=== PATIENT | female | born 1935 | race Caucasian/White ===

== ENCOUNTER 2017-05-01 20:30 | Outpatient (CLI) | payer MEDICARE | END 2017-05-01 20:31 | disposition home or self-care (01) | LOC: SLEEPLAB 20:30 | PROVIDERS: ATTEND Internal Medicine | DX: G47.33 Obstructive sleep apnea (adult) (pediatric) (principal); G47.00 Insomnia, unspecified; G47.10 Hypersomnia, unspecified; I10 Essential (primary) hypertension; E11.69 Type 2 diabetes mellitus with other specified complication; R00.1 Bradycardia, unspecified | CPT/HCPCS: 95811 ==

== ENCOUNTER 2018-04-08 12:47 | Emergency (ER) | payer MEDICARE ==
[2018-04-08] MEDS ORDERED: traMADol HCl 50 MG TAB ONE (14:03)
--- NOTE | 2018-04-08 14:08 | RAD ---
PELVIC RADIOGRAPH: Date: 04-08-18 Provided Clinical History: Bilateral hip pain. Comparison: 02-05-17 FINDINGS: There is no evidence for fracture or other acute osseous abnormality. Remote, healed fractures of lef t superior and inferior pubic rami noted. Alignment appears anatomic. Joint spaces appear preserved. IMPRESSION: No evidence for an acute osseous abnormality. If there is persistent clinical concern, conservative m anagement and follow up imaging are advised. POS: NAIN
== END 2018-04-08 14:29 | disposition home or self-care (01) ==
LOC: ERS 12:47
DX: M25.551 Pain in right hip (principal); M25.552 Pain in left hip; E11.9 Type 2 diabetes mellitus without complications; E78.5 Hyperlipidemia, unspecified; I10 Essential (primary) hypertension; Z86.73 Personal history of transient ischemic attack (TIA), and cerebral infarction without residual deficits; Z79.899 Other long term (current) drug therapy; Z79.84 Long term (current) use of oral hypoglycemic drugs
CPT/HCPCS: 72170; 94760

== ENCOUNTER 2018-04-12 19:21 | Observation (INO) | payer MEDICARE ==
[2018-04-12] MEDS ORDERED: Morphine 4 MG/ML VIAL ONE (20:43)
[2018-04-12] MEDS ORDERED: Fentanyl 100 MCG/2 ML VIAL SLOW IVP PRN (22:41)
[2018-04-12] MEDS ORDERED: Ondansetron ODT 4 MG TAB SL PRN (22:42)
[2018-04-12] MEDS ORDERED: Ondansetron HCl/PF 4 MG/2 ML Vial IVP PRN (22:42)
[2018-04-12 23:36] VITALS: BMI 32.8
[2018-04-13 05:39] LABS: INR-International Normal Ratio 3.4; Prothrombin Time 34.6 SEC (12.0-14.7)
[2018-04-13] MEDS ORDERED: Meclizine HCl 25 MG TAB PO PRN (05:48)
[2018-04-13] MEDS ORDERED: Bisacodyl 5 MG TAB PO PRN (05:49)
[2018-04-13] MEDS ORDERED: Dextrose 50% Abboject 50 ML SYRINGE SLOW IVP PRN (05:58)
[2018-04-13] MEDS ORDERED: HumaLOG 300 UNITS/3 ML VIAL SC PRN (05:58)
[2018-04-13] MEDS ORDERED: Dextrose 5% in Water 1,000 ML IV PRN (05:58)
[2018-04-13] MEDS ORDERED: Loperamide HCl 2 MG CAP PO PRN (06:10)
[2018-04-13 06:35] LABS: #Eosinphils 0.1 thou/uL (0.0-0.7); #Lymphocytes 1.6 thou/uL (1.20-3.40); #Monocytes 0.5 thou/uL (0.11-0.59); %Basophils 0.1 % (0.0-1.0); %Eosinophils 2.9 % (0.0-10.0); %Lymphocytes 30.2 % (21.0-51.0); %Neutrophils 57.8 % (42.0-75.0); Hemoglobin 10.4 g/dL (12.0-16.0); Mean Corpuscular HGB CONC 33.7 g/dL (32.0-36.0); Mean Corpuscular Hemoglobin 36.5 pg (27.0-31.0); Mean Platelet Volume 6.8 fL (7.4-10.4); Platelet Count 190 thou/uL (130-400); RBC Distribution Width 12.9 % (11.5-14.5); Red Blood Cell (RBC) Count 2.86 mill/uL (4.20-5.40); White Blood Cell (WBC) Count 5.2 thou/uL (4.8-10.8)
--- NOTE | 2018-04-13 06:37 | HP ---
CHIEF COMPLAINT: Lower back pain. HISTORY OF PRESENT ILLNESS: This is an 82-year-old female with past medical history of type 2 diabet es, hyperlipidemia, hypertension, CVA in the past, osteoporosis and fractured lower back presenting w ith lower back pain. Per the patient, she stretched on Saturday prior to this admission and she heard a pop in her back and her back has then since been hurting. The patient states that morphine helps her pain, 0-10 on severity scale, patient's pain is 4/10. Pain is constant. Patient states that she had an accident, it is unknown and accident in the past. Patient said that she had an accident in t he past and that had caused some back problems, but this pain that she is experiencing is a new back pain, which is different from the back pain that she normally experiences in the past. Patient denie s any urinary incontinence, bowel incontinence. REVIEW OF SYSTEMS: Positive for back pain, otherwise as documented in HPI. All other systems are re viewed and are negative. PAST MEDICAL HISTORY: Diabetes mellitus type 2, hyperlipidemia, hypertension, osteoporosis, fracture d lower back in the past, and CVA. PAST SURGICAL HISTORY: Cholecystectomy, tonsillectomy, pacemaker. PSYCHIATRIC HISTORY: No psych history. SOCIAL HISTORY: The patient denies any illicit drug use. Denies any alcohol use and denies any smok ing. FAMILY HISTORY: Reviewed and noncontributory to this case. ALLERGIES: No known drug allergies. CURRENT MEDICATIONS: The patient is on; 1. Coumadin 4 mg. 2. Amlodipine 5 mg. 3. Lisinopril 10 mg. 4. Metformin 750 mg. 5. Actoplus Met 15/500 mg. 6. Zocor 20 mg. PHYSICAL EXAMINATION: VITAL SIGNS: Blood pressure is 140/73, pulse of 60, respiratory rate of 20, temperature of 97.5, O2 sat of 94 on room air. GENERAL: Patient is awake, alert, oriented x3, not in acute distress. The patient is lying in bed. The patient says that she is pain free at this time, patient is alert and oriented x3. HEENT: Normocephalic, atraumatic. Pupils are equally round and react to light. Extraocular movemen ts are intact. No scleral icterus. LUNGS: Clear to auscultation bilateral. No wheezing, no rales, no rhonchi is appreciated. CARDIOVASCULAR: Positive S1, S2. Regular rate and rhythm. No murmurs, no gallops, no rubs apprecia peri. ABDOMEN: Soft, nontender, nondistended. Negative for any peritoneal signs. No masses appreciated. BACK: Patient is having some discomfort at the lumbar spine. EXTREMITIES: The patient has 5/5 upper extremity strength. No edema. Good pulses bilaterally at th e upper extremity. Lower extremity, patient has some difficulty elevating her lower extremities due to pain in the lumbar spine when legs are elevated (positive leg raise), otherwise, no edema. NEUROLOGIC: Cranial nerves II-XII grossly intact. No neurological deficit noted. SKIN: Warm, dry, and intact. PSYCHIATRIC: Alert and oriented x3, normal affect. LABORATORY DATA: PT 34.6, INR 3.4. ASSESSMENT AND PLAN: 1. This is an 82-year-old female being admitted for lumbar pain. At this point, the patient does no t have any urinary or bowel incontinence, we are going to admit the patient and keep the patient for MRI of the lumbar spine in the morning. The patient has a pacemaker and [email or web address] has been contacted to find out if pacemaker is compatible with MRI. If MRI cannot be done, then a CT myelogram has to be done to rule out any cord compression. 2. Diabetes mellitus type 2. We will continue the patient on insulin sliding scale and home medicat ions. 3. Hypertension and hyperlipidemia. We will continue patient on home medication. 4. History of atrial fibrillation. The patient is currently on warfarin. We will continue patient on warfarin. 5. Deep venous thrombosis and gastrointestinal prophylaxis.
[2018-04-13 06:43] LABS: Anion Gap 13 mmol/L (10-20); BUN (Urea Nitrogen) 17 mg/dL (9.8-20.1); Calc. Creatinine Clearance 74 mL/min (70-130); Carbon Dioxide 23 mmol/L (23-31); Chloride 107 mmol/L (98-107); Estimated GFR-MDRD 75; Glucose 125 mg/dL (83-110); Potassium 3.7 mmol/L (3.5-5.1); Sodium 139 mmol/L (136-145)
--- NOTE | 2018-04-13 08:43 | PRG ---
DATE OF SERVICE: 04/13/2018 I personally interviewed and examined the patient, reviewed records and imaging, and agree with docum entation of Lucero Patel PA-C. Briefly, Kourtney Gonzalez is an 82-year-old woman, who woke up in the morning this past week and was do ing her normal stretching exercises before getting out of bed when she heard a pop in her back. The back was hurting and gradually worsened since then and she had to come to the emergency department [facility] night for pain control. CT examination showed an L2 fracture, but she has had a fracture in the p ast. Does not remember how many years ago it was, but that was the beginning of her treatment for os teoporosis. That treatment included some injections for a number of months, but she is no longer eh ing those injections. The pain now reminds her of when she had her fracture before and she is concer bebe that there is another one, which may be new. I have seen Ms. Gonzalez in her hospital bed this morning. She has already been fitted with a TLSO brac e that is closed by Velcro straps in the front. It has a chest extension. There is some tenderness in the paraspinal muscles and along the midline of the spine. This is in the thoracolumbar region, a nd it is diffuse. The motor function in the lower extremities is normal. Flexing the hip in the bed reproduces her luis antonio k pain, so she is hesitant to do it, but I do not find any neurological deficit. She has good sensat ion and strength. It is likely, but not definitive, that she has had a new compression fracture. L2 seems to be deform ed, but this could be an old injury. MR imaging of her bone scan could tell us what the level of the new injury might be. Alternatively, we can skip the scans and use a brace and analgesics for pain c ontrol. She does not want any surgical intervention even kyphoplasty to be considered yet. In a few weeks of bracing, we can see her in the office for followup AP and lateral spine imaging. If she is able to get MR imaging here in the hospital, we will follow up when those are done, but otherwise br acing and analgesics will be the mainstay of therapy.
[2018-04-13] MEDS: Amlodipine 5 MG TAB PO SCH (08:56)
[2018-04-13] MEDS: Famotidine 20 MG TAB PO SCH ×2 (08:57→20:24)
[2018-04-13] MEDS: Lisinopril 10 MG TAB PO SCH (08:57)
--- NOTE | 2018-04-13 12:49 | CON ---
DATE OF CONSULTATION: 04/13/2018 HISTORY OF PRESENT ILLNESS: Ms. Gonzalez was brought to the emergency room as a transfer from [place]. She has been in and out of the emergency room there over the last week. She states that Saturday, he woke up and stretched, she heard a pop in her back and it started hurting. She states that kristofer emanuel has helped with the pain and she will feel the pain across her back into both hips. She states sandrine t when she is up on her feet for any length of time, she feels like it gets down into both legs. She states that she saw her primary care provider who prescribed her some muscle relaxers and told her t o keep moving. She has been taking muscle relaxers, Tylenol and tramadol, but not much has been help ing the pain. She states that she is pain free when she lays down. However, if she lifts her legs o ff the bed, she has back pain and. If she sits or stands, she has back pain. The patient states sandrine t she has had a previous compression fracture without injury. I believe that this is L2 fracture sandrine t is seen on the CT. The patient denies any numbness or tingling. She denies any weakness. No jeff l or bladder dysfunction. Patient states that she does not remember how long ago her previous fractu re was, however, her primary carer started her on treatment for osteoporosis. She has been taking in jections and oral medications; however, she is not taking them any longer. Ms. Gonzalez is resting comf ortably in her hospital bed. She is eating breakfast. She has been fitted with a TLSO brace. She h as midline tenderness along the lumbar spine when palpated but pain free when lying down. REVIEW OF SYSTEMS: The patient denies any fever or chills. No changes in vision or hearing. No dif ficulty swallowing or sore throat. She denies any chest pain, palpitations, or shortness of breath. She denies any abdominal pain, nausea or vomiting. Denies any diarrhea, constipation, or urinary dy sfunction. PAST MEDICAL HISTORY: Positive for diabetes type 2, hyperlipidemia, hypertension, history of ischemi c cerebrovascular accident, osteoporosis, previous compression fracture of the low back. PAST SURGICAL HISTORY: Cholecystectomy, tonsillectomy, had a pacemaker placed in October 2017. SOCIAL HISTORY: The patient denies tobacco use, alcohol use, or any other illicit drugs. She lives in her home with her who helps her with her daily activities. FAMILY HISTORY: Noncontributory. ALLERGIES: No known drug allergies. MEDICATIONS: Coumadin, amlodipine, lisinopril, metformin, Actoplus, Zocor. PHYSICAL EXAMINATION: VITAL SIGNS: Temperature 98.0, heart rate 77, respiratory rate 18, O2 sat 93% on room air. Blood pr essure 149/73. GENERAL: The patient is resting in her hospital bed. She is afebrile, normotensive. She appears no ntoxic, pain-free, alert and oriented to person, place, and time. HEENT: Head is normocephalic, atraumatic. Pupils are equal, round, reactive to light. Extraocular movements are intact. Hearing is intact. Moist mucous membranes. RESPIRATORY: Normal work of breathing, room air. CARDIOVASCULAR: Regular rate and rhythm. Normal S1, S2. UPPER AND LOWER EXTREMITIES: The patient is able to move upper and lower extremities well. She has slight decrease in strength on the left upper extremity due to recovery from her previous stroke. Th e patient has normal velvet cutter strength bilaterally, 5/5 deltoid, biceps, and triceps on the right, 4+/5 o n the left. Lower extremities, hip flexion bilaterally recreates the back pain. She has limited str ength due to the pain. She has normal motor and sensation 5/5, dorsiflexion, plantar flexion, knee f lexion and extension. NEUROLOGIC: The patient is alert and oriented to person, place and time. Speech is spontaneous and fluent. Normal fund of knowledge. Cranial nerves II-XII are intact. There are no focal motor or se nsory deficits. ASSESSMENT AND PLAN: Ms. Gonzalez is an 82-year-old female with new onset of back pain with history of osteoporosis. It is likely that her pain is a new compression fracture. Upon imaging, the L2 appear s to be an old injury. MRI imaging will tell us if there is a new injury in the level that it could be. Depending on whether Ms. Gonzalez wants to have the MRI or CT myelogram, she can skip the scans and we can control her pain with bracing and analgesics that is up to her. The patient states that she does not want any surgical intervention, even if kyphoplasty could be a consideration. In a few week s of bracing, we will see her in the office to followup. We would like to obtain AP and lateral imag ing at that time. If she is able to get an MRI of her lumbar spine, we will review this.
--- NOTE | 2018-04-13 16:13 | PDOC.PN ---
- Subjective Encounter Start Date: 04/13/18 Encounter Start Time: 16:10 Ms. Gonzalez was seen today in follow-up of Lumbar Vertebral fracture. She says the pain is about a 4/10 when she moves around, otherwise it is ok. She denies any bowel or bladder dysfunction. - Objective Resuscitation Status: Resuscitation Status FULL:Full Resuscitation MAR Reviewed: Yes Vital Signs & Weight: Vital Signs (12 hours) Temp Pulse Resp BP BP BP Pulse Ox 04/13/18 11:20 98 F 66 18 121/72 94 L 04/13/18 08:57 149/78 H 04/13/18 08:56 77 149/78 H 04/13/18 07:18 98 F 77 18 149/73 H 93 L 04/13/18 05:02 98 F 86 18 148/67 H 97 Weight Admit Weight 173 lb 8.061 oz Weight 173 lb 8.061 oz Result Diagrams: 04/13/18 05:23 04/13/18 05:23 Additional Labs: Accuchecks 04/13/18 11:17 POC Glucose 105 Phys Exam - Physical Examination HEENT: PERRLA Respiratory: no wheezing, no rales, no rhonchi, clear to auscultation bilateral Cardiovascular: RRR, no significant murmur, no rub Gastrointestinal: soft, non-tender, no distention, positive bowel sounds Musculoskeletal: no edema Dx/Plan (1) Compression fracture of L2 lumbar vertebra Code(s): S32.020A - WEDGE COMPRESSION FRACTURE OF SECOND LUMBAR VERTEBRA, INIT Status: Acute (2) Diabetes mellitus type 2 in obese Code(s): E11.69 - TYPE 2 DIABETES MELLITUS WITH OTHER SPECIFIED COMPLICATION; E66.9 - OBESITY, UNSPECIFIED Status: Acute (3) Hypertension Code(s): I10 - ESSENTIAL (PRIMARY) HYPERTENSION Status: Acute (4) Cerebral vascular accident Code(s): I63.9 - CEREBRAL INFARCTION, UNSPECIFIED Status: Acute - Plan * L2 Vertebral fracture- Neurosurgery Evaluation Noted. She will be treated conservatively * MRI is not compulsory * HTN- blood pressure was initially elevated, but is now trending down- will continue Lisinopril and Amlodipine * DM- blood glucose is stable- continue to hold her oral medication and continue with SSI * Chronic Anticoagulation- ? reason. The patient says she had a stroke about 12 years ago, and after that she was put on couadin. She says it is not due to AFIB , and she has not had a DVT or PE that she is aware of. INR is 3.6 today- will hold coumadin * PT/OT
[2018-04-13] MEDS: Acetaminophen 325 MG TAB PO PRN ×2 (16:51→23:01)
[2018-04-13] MEDS ORDERED: Warfarin Sodium 2 MG TAB PO SCH (17:00)
[2018-04-13] MEDS ORDERED: Cyclobenzaprine 10 MG TAB PO PRN (18:58)
[2018-04-13] MEDS: traMADol HCl 50 MG TAB PO PRN (20:24)
[2018-04-13] MEDS ORDERED: Simvastatin 20 MG TAB PO SCH (21:00)
[2018-04-14] MEDS: traMADol HCl 50 MG TAB PO PRN ×2 (05:37→13:00)
[2018-04-14 05:40] LABS: INR-International Normal Ratio 2.2; Prothrombin Time 24.4 SEC (12.0-14.7)
[2018-04-14] MEDS: Lisinopril 10 MG TAB PO SCH (07:42)
[2018-04-14] MEDS: Famotidine 20 MG TAB PO SCH (07:42)
[2018-04-14] MEDS: Amlodipine 5 MG TAB PO SCH (07:43)
[2018-04-14] MEDS: Acetaminophen 325 MG TAB PO PRN (10:06)
[2018-04-14 16:12] VITALS: BP 160/75; TEMP 97.7
--- NOTE | 2018-04-14 16:35 | PDOC.PN ---
- Subjective Encounter Start Date: 04/14/18 Encounter Start Time: 16:33 Ms. Gonzalez was seen today in follow-up of Lumbar fracture. she does not have any complaints this morning. - Objective Resuscitation Status: Resuscitation Status FULL:Full Resuscitation MAR Reviewed: Yes Vital Signs & Weight: Vital Signs (12 hours) Temp Pulse Resp BP BP BP Pulse Ox 04/14/18 15:36 97.7 F 66 18 160/75 H 93 L 04/14/18 11:05 97.5 F L 63 16 164/71 H 97 04/14/18 07:43 74 04/14/18 07:42 164/73 H 04/14/18 07:14 97.4 F L 74 18 164/73 H 97 Weight Admit Weight 173 lb 8.061 oz Weight 173 lb 8.061 oz I&O: 04/13/18 04/14/18 04/15/18 06:59 06:59 06:59 Intake Total 1050 Balance 1050 Result Diagrams: 04/13/18 05:23 04/13/18 05:23 Additional Labs: Accuchecks 04/14/18 04/14/18 04/13/18 10:09 05:43 20:56 POC Glucose 92 88 193 H 04/13/18 18:25 POC Glucose 145 H Phys Exam - Physical Examination HEENT: PERRLA Respiratory: no wheezing, no rales, no rhonchi, clear to auscultation bilateral Cardiovascular: RRR, no significant murmur, no rub Gastrointestinal: soft, non-tender, no distention, positive bowel sounds Musculoskeletal: no edema Dx/Plan (1) Compression fracture of L2 lumbar vertebra Code(s): S32.020A - WEDGE COMPRESSION FRACTURE OF SECOND LUMBAR VERTEBRA, INIT Status: Acute (2) Diabetes mellitus type 2 in obese Code(s): E11.69 - TYPE 2 DIABETES MELLITUS WITH OTHER SPECIFIED COMPLICATION; E66.9 - OBESITY, UNSPECIFIED Status: Acute (3) Hypertension Code(s): I10 - ESSENTIAL (PRIMARY) HYPERTENSION Status: Acute (4) Cerebral vascular accident Code(s): I63.9 - CEREBRAL INFARCTION, UNSPECIFIED Status: Acute - Plan * L2 Compression fracture- She does not have any neurological compromise * She has been ambulating with the Brace without difficulty * She is stable for discharge home.
--- NOTE | 2018-04-15 07:53 | DIS ---
The pain was relatively mild and therefore, it was felt that there was no need for any operative inte rvention, she will be treated conservatively and as such is subsequently able to be discharged home t [facility] in stable condition with follow up with Dr. Antoine as instructed. DISCHARGE DIAGNOSES: 1. . 2. Compression fracture. 3. Diabetes mellitus, type 2. 4. Hyperlipidemia. 5. Hypertension. 6. History of cerebrovascular accident. 7. Chronic anticoagulation, unknown reason. DISCHARGE MEDICATIONS: Include tramadol 50-100 mg q.6 hours as needed for pain, Coumadin 4 mg daily, amlodipine 5 mg daily, lisinopril 10 mg daily, metformin/pioglitazone 15/500 one tablet daily, mecli zine 25 mg twice daily, amlodipine 5 mg daily, lisinopril 10 mg a day. CODE STATUS: FULL CODE. ALLERGIES: No known drug allergies. HOSPITAL COURSE: Ms. Gonzalez is a pleasant 82-year-old female who presented to the emergency room afte r she had the sudden episode of severe back pain. She says that she had stretched and heard a pop an d then had the sensation of the pain. She was evaluated in the ER and had a CT scan of the lumbar sp ine. It was noted that there was a compression fracture at L2, which was a new as compared to previo us CT scan. She was placed in observation and Neurosurgery was consulted. She had no evidence of an y motor weakness, no bowel or bladder dysfunction and her pain was relatively .
== END 2018-04-14 16:55 | disposition home or self-care (01) ==
LOC: ERS 19:21 → SURG A 22:38
PROVIDERS: ADMIT Internal Medicine; ATTEND Internal Medicine
DX: M80.08XA Age-related osteoporosis with current pathological fracture, vertebra(e), initial encounter for fracture (principal); E11.9 Type 2 diabetes mellitus without complications; E78.5 Hyperlipidemia, unspecified; I10 Essential (primary) hypertension; Z86.73 Personal history of transient ischemic attack (TIA), and cerebral infarction without residual deficits; Z79.01 Long term (current) use of anticoagulants; Z79.84 Long term (current) use of oral hypoglycemic drugs; Z79.899 Other long term (current) drug therapy
CPT/HCPCS: 80048; 82962 ×2; 85025; 85610 ×2; 96374; 96375; 97116; 97139 ×4; 97535; 99285; G0378 ×2; G8978; G8979; G8980; G8987; G8988; G8989; 36415; 36416; J2270; J3010

== ENCOUNTER 2018-07-04 10:16 | Outpatient (CLI) | payer MEDICARE ==
--- NOTE | 2018-07-04 15:21 | NM ---
WHOLE BODY BONE SCAN: Date: 07-04-18 Provided Clinical History: Fracture of unspecific thoracic vertebra. FINDINGS: 31.5 mCi Technetium 99M MDP IV with three hour whole body posterior and anterior planar imaging perfo rmed. Correlation with lumbar spine CT 06-13-18. Intense radiotracer uptake associated with the L1 and L2 vertebral bodies in regions of vertebroplast y change. No radiotracer uptake is seen in the region of the T11 fracture. Remote right sided rib fra cture. Degenerative change both shoulders and left knee. IMPRESSION: Activity associated with the L1 and L2 compression deformities status post vertebroplasty. POS: MEHDI
== END 2018-07-04 10:17 | disposition home or self-care (01) ==
LOC: NM 10:16
PROVIDERS: ATTEND Neurological Surgery
DX: S22.008A Other fracture of unspecified thoracic vertebra, initial encounter for closed fracture (principal); Z98.890 Other specified postprocedural states
CPT/HCPCS: 78306; A9503

== ENCOUNTER 2018-08-02 09:23 | Observation (INO) | payer MEDICARE ==
--- NOTE | 2018-08-02 11:59 | CT ---
CT THORACIC SPINE NONCONTRAST: HISTORY: Low back pain. FINDINGS: Near-complete compression of the T11 vertebral body is unchanged in appearance from the radiographs 2017. Other thoracic vertebral body heights are maintained. Scattered osteophytosis. Vertebro plasty seen and at the L1 level is partially visualized. Calcification in the arterial structures. Dependent bibasilar lung atelectasis. IMPRESSION: 1. Chronic compression deformity at T11. Degenerative changes of the thoracic spine. No acute comp ression fracture is evident. 2. Atherosclerosis. POS: NAIN
--- NOTE | 2018-08-02 12:07 | CT ---
CT LUMBAR SPINE NONCONTRAST: HISTORY: Worsening low back pain. COMPARISON: 06/13/2018. FINDINGS: Vertebroplasty cement is again demonstrated at the L1 and L2 levels. L2 compression injury is unchan ged in appearance with mild retropulsion of superior end plate. Compression of the L1 vertebral body centrally has progressed since the prior study, now estimated at 40% compression. Minimal retropulsion of the superior end plate. Degenerative changes throughout the lumbar spine are otherwise stable. Osseous structures are demine ralized. Calcification of the arterial structures. T11 vertebral compression is stable and describe d in better detail on dedicated CT thoracic spine exam. IMPRESSION: Interval increase in compression injury of the L1 vertebral body. Other findings are stable. POS: NAIN
[2018-08-02 14:09] LABS: #Eosinphils 0.2 thou/uL (0.0-0.7); #Lymphocytes 1.8 thou/uL (1.20-3.40); #Monocytes 0.4 thou/uL (0.11-0.59); #Neutrophils 3.3 thou/uL (1.40-6.50); %Basophils 0.8 % (0.0-1.0); %Eosinophils 2.9 % (0.0-10.0); %Monocytes 7.3 % (0.0-10.0); Hemoglobin 11.7 g/dL (12.0-16.0); Mean Corpuscular HGB CONC 32.2 g/dL (32.0-36.0); Mean Corpuscular Hemoglobin 35.8 pg (27.0-31.0); Mean Platelet Volume 7.1 fL (7.4-10.4); Platelet Count 181 thou/uL (130-400); RBC Distribution Width 12.5 % (11.5-14.5); Red Blood Cell (RBC) Count 3.27 mill/uL (4.20-5.40); White Blood Cell (WBC) Count 5.7 thou/uL (4.8-10.8)
[2018-08-02 14:25] LABS: MDiff Complete? YES; Macrocytosis SLIGHT = 6-15 cells (100X) (0-5/hpf); Platelet Morphology Comment Appears Adequate; Polychromasia SLIGHT = 2-3 cells (100X) (0-2/hpf)
[2018-08-02 14:27] LABS: ALT (SGPT) 20 U/L (8-55); AST (SGOT) 43 U/L (5-34); Albumin 3.9 g/dL (3.4-4.8); Alkaline Phosphatase 58 U/L (40-150); Anion Gap 15 mmol/L (10-20); BUN (Urea Nitrogen) 18 mg/dL (9.8-20.1); Bilirubin, Total 0.5 mg/dL (0.2-1.2); Calc. Creatinine Clearance 0 mL/min (70-130); Calcium 9.5 mg/dL (7.8-10.44); Carbon Dioxide 25 mmol/L (23-31); Chloride 102 mmol/L (98-107); Estimated GFR-MDRD 62; Globulin 3.3 g/dL (2.4-3.5); Glucose 123 mg/dL (83-110); Potassium 3.9 mmol/L (3.5-5.1); Protein, Total 7.2 g/dL (6.0-8.3); Sodium 138 mmol/L (136-145)
[2018-08-02] MEDS ORDERED: HYDROcodone/Acetaminophen 10/325 mg Tablet ONE (15:11)
[2018-08-02] MEDS ORDERED: Senokot S 8.6-50 MG TAB PO PRN (16:14)
[2018-08-02] MEDS ORDERED: Ondansetron ODT 4 MG TAB SL PRN ×2 (16:14→16:20)
[2018-08-02] MEDS ORDERED: Ondansetron PF 4 MG/2 ML Vial IVP PRN (16:20)
[2018-08-02] MEDS ORDERED: Acetaminophen 325 MG TAB PO PRN (16:20)
[2018-08-02] MEDS ORDERED: Morphine 4 MG/ML VIAL SLOW IVP PRN (16:20)
[2018-08-02] MEDS ORDERED: Morphine 4 MG/ML VIAL IV PRN (16:22)
[2018-08-02 16:43] VITALS: BMI 28.3
--- NOTE | 2018-08-02 17:43 | HP ---
CHIEF COMPLAINT: Back pain. HISTORY OF PRESENT ILLNESS: This patient is an 83-year-old female with a history of lumbar compression fracture, which initially started in late March, the patient had L2 and L1 compression fracture. The patient had evaluation by neurosurgery and the recommendation was for conservative management. The patient subsequently was admitted again in May in [facility], where the patient was noted to have some progression of the L1 compression fracture. The patient has been continually followed by Dr. Braden since that time with Pain Management. She has also seen Dr. Villalta eventually and apparently had a vertebroplasty performed after a couple of weeks. The patient did ultimately have some improvement with that and was doing very well for about a week, however, she subsequently had regression with increasing pain over the last 4-5 days. She has been trying to avoid coming to the hospital, but has reached a point where her pain was intolerable. The patient has been on a fentanyl patch at 12 mcg and she has been taking Tylenol and tramadol. They believe that the tramadol has been causing her some nausea and vomiting. Those symptoms have certainly been happening primarily in the middle of the night and they have essentially narrowed down thinking it is the tramadol that was causing that. Today, the patient ultimately called for ambulance transport and en route, the patient received IV morphine at 4 mg and had significant improvement of her symptoms and even now that she is much better than she has been over the last several days. She reports that the pain radiates down into both thighs which has been the typical. However, she has not had any loss of bowel or bladder function and has had no other loss of neurologic function including no numbness or specific weakness. Of note, the patient has been on osteoporosis medications and has done so for a number of years trying to avoid these types of issues. In the emergency room today, the patient had a repeat CT scan, which showed interval increase in compression of the L1 vertebrae. It is now about a 40% compression. There is minimal retropulsion of the superior endplate. There is also noted notation of the old T11 vertebral compression fracture, which was stable and had occurred prior to the lumbar compression. REVIEW OF SYSTEMS: The patient has had the above-mentioned intermittent nausea and some vomiting, which is primarily occurred at nights and believed to be related to the tramadol. She has type 2 diabetes, hypertension, hyperlipidemia, osteoporosis, prior CVA, and a history of atrial fibrillation, for which she takes the anticoagulation. PAST SURGICAL HISTORY: Cholecystectomy, tonsillectomy, pacemaker, and vertebroplasty. FAMILY HISTORY: Reviewed and notable for significant osteoporosis in her mother. SOCIAL HISTORY: No drugs, no alcohol, no tobacco. She is . She lives with her . She is a full code and her and her son would be her surrogate decision maker. ALLERGIES: NONE. CURRENT MEDICATIONS: Include; 1. Amlodipine 5 mg daily. 2. Lisinopril 10 mg daily. 3. Simvastatin 10 mg daily. 4. Warfarin 1 mg daily. 5. Hydrochlorothiazide 25 daily. 6. Ropinirole 1 mg at bedtime. 7. Pioglitazone/metformin 15/500 one p.o. daily. 8. Tamsulosin 0.4 mg daily. 9. Carvedilol 12.5 mg daily. 10. Ranitidine 150 mg daily. 11. Aspirin 81 mg daily. 12. Fentanyl patch 12 mcg. PHYSICAL EXAMINATION: VITAL SIGNS: BP 128/57, pulse 60, respirations 17, temperature 98.1, O2 saturation 97% on room air. GENERAL APPEARANCE: Age-appropriate female. She is definitely uncomfortable with even trying to get her in the bed and get her appropriately positioned. She is requiring several pillows up on her head and neck area in order to keep herself comfortable and has to keep her legs bent at times. HEENT: PERRL. No OP lesions. Denture is in place. NECK: Supple and symmetric. HEART: Regular rate and rhythm without murmurs. LUNGS: Clear to auscultation bilaterally with good chest wall expansion and air exchange. ABDOMEN: Soft, nontender, and nondistended. Positive bowel sounds. No masses. No organomegaly. EXTREMITIES: Warm and dry without edema. MUSCULOSKELETAL: Reveals normal spontaneous movement of the lower extremities. There is tenderness to palpation of the lumbar spine. LABORATORY DATA: White count 5.7, hemoglobin 11.7, platelets 181. Sodium 138, potassium 3.9, CO2 is 102, BUN 18, creatinine 0.87, calcium 9.5, glucose 123, AST 43, ALT 20, albumin 3.9. L-spine CT as above. T-spine CT shows the chronic compression deformity at T11 and degenerative changes of the thoracic spine with some atherosclerosis. IMPRESSION AND PLAN: 1. Intractable pain secondary to lumbar compression fracture at L1, which has apparently progressed based on imaging. The patient will continue to receive morphine today. Her Duragesic patch will stay on. We will try to get her pain under control today and see if we can try to transition her to a non IV regimen as soon as possible. We will go ahead and consult Physical Therapy. If the patient is still here on Saturday, we will need to talk to Dr. Villalta and see if there is a possibility of doing anything again in order to try to stabilize her spine situation. The patient has a TLSO brace on already. We will ask Physical Therapy to consult. 2. Diabetes mellitus. Continue with her usual home regimen, Accu-Cheks and sliding scale insulin. 3. Hypertension. Continue home medications. 4. Hyperlipidemia. We will continue her usual medications. 5. Macrocytic anemia. We will check some anemia indices. Job ID: [id number]
[2018-08-02] MEDS: Acetaminophen 325 MG TAB PO PRN (21:31)
[2018-08-03] MEDS: Acetaminophen 325 MG TAB PO PRN ×3 (04:00→14:18)
[2018-08-03] MEDS ORDERED: Tamsulosin HCl 0.4 MG CAP PO PRN (08:47)
[2018-08-03] MEDS ORDERED: Non-Formulary Item 1 EACH (Acetaminophen [Tylenol] 650 MG) PO SCH (09:00)
[2018-08-03] MEDS ORDERED: Non-Formulary Item 1 EACH (Carvedilol [Carvedilol] 12.5 MG) PO SCH (09:00)
[2018-08-03] MEDS ORDERED: Warfarin Sodium 2 MG TAB PO SCH ×2 (09:00→17:00)
--- NOTE | 2018-08-03 09:03 | PDOC.PN ---
- Subjective Encounter Start Date: 08/03/18 Encounter Start Time: 09:02 Pain is improved. She still needs some help getting up to bedside commode. Nurse reports patient was able to get up last night. - Objective Resuscitation Status - Order Detail: 08/02/18 16:14 Resuscitation Status Routine Resuscitation Status: DNAR: NO Resuscitation Discussed with: Patient Vital Signs & Weight: Vital Signs (12 hours) Temp Pulse Resp BP BP Pulse Ox 08/03/18 07:00 97.5 F L 66 20 128/66 95 08/03/18 04:00 98.2 F 60 20 121/57 L 96 08/03/18 00:00 97.8 F 60 20 103/63 94 L Weight Weight 150 lb Result Diagrams: 08/02/18 13:53 08/02/18 13:53 Phys Exam - Physical Examination Constitutional: NAD Lying supine in bed. Respiratory: no wheezing, no rales, no rhonchi Cardiovascular: no significant murmur, irregular Gastrointestinal: soft, non-tender, no distention, positive bowel sounds Musculoskeletal: no edema Psychiatric: normal affect, A&O x 3 Dx/Plan (1) Compression fracture of C1 vertebra with delayed healing Code(s): S12.090G - OTH DISP FX OF FIRST CERVCAL VERT, SUBS FOR FX W DELAY HEAL Status: Acute (2) Compression fracture of C2 vertebra with delayed healing Code(s): S12.190G - OTH DISP FX OF SECOND CERVCAL VERT, SUBS FOR FX W DELAY HEAL Status: Acute (3) Intractable pain Code(s): R52 - PAIN, UNSPECIFIED Status: Acute (4) Diabetes mellitus type 2 in obese Code(s): E11.69 - TYPE 2 DIABETES MELLITUS WITH OTHER SPECIFIED COMPLICATION; E66.9 - OBESITY, UNSPECIFIED Status: Chronic (5) Hypertension Code(s): I10 - ESSENTIAL (PRIMARY) HYPERTENSION Status: Chronic - Plan * Continue IV meds prn. * PT eval. * Anticipate then need to discuss with Dr. Villalta tomorrow to get clarity on the situation. It is not clear that if the additional compression is new since the vertebroplasty or if it was present then and simply looks new compared the images in our EHR from before. Will also need to know if there is anything more that can be done from his perspective. * Accuchecks, Carb consistent diet, SSI, home meds. * Check INR.
[2018-08-03] MEDS ORDERED: Dextrose 50% Abboject 50 ML SYRINGE SLOW IVP PRN (09:04)
[2018-08-03] MEDS ORDERED: Dextrose 5% in Water 1,000 ML IV PRN (09:04)
[2018-08-03] MEDS ORDERED: HumaLOG 300 UNITS/3 ML VIAL SC PRN (09:04)
[2018-08-03] MEDS: Aspirin Chewable 81 MG TAB PO SCH (09:41)
[2018-08-03] MEDS: Pioglitazone HCl 15 MG TAB PO SCH (09:41)
[2018-08-03] MEDS: Hydrochlorothiazide 25 MG TAB PO SCH (09:41)
[2018-08-03] MEDS: Carvedilol 6.25 MG TAB PO SCH ×2 (09:42→21:35)
[2018-08-03] MEDS: Lisinopril 20 MG TAB PO SCH (09:42)
[2018-08-03 10:21] LABS: Prothrombin Time 43.8 SEC (12.0-14.7)
[2018-08-03 10:27] LABS: INR-International Normal Ratio 4.7
[2018-08-03] MEDS: metFORMIN 500 MG TAB PO SCH (16:59)
[2018-08-03] MEDS ORDERED: Warfarin Sodium 5 MG TAB PO SCH (17:00)
[2018-08-03] MEDS ORDERED: Non-Formulary Item 1 EACH (Ranitidine Hcl [Ranitidine Hcl] 150 MG) PO SCH (21:00)
[2018-08-03] MEDS ORDERED: Simvastatin 20 MG TAB PO SCH (21:00)
[2018-08-03] MEDS: rOPINIRole HCl 1 MG TAB PO SCH (21:34)
[2018-08-03] MEDS: Acetaminophen 325 MG TAB PO SCH (21:35)
[2018-08-03] MEDS: Famotidine 20 MG TAB PO SCH (21:36)
[2018-08-03] MEDS: Amlodipine 5 MG TAB PO SCH (21:36)
[2018-08-03] MEDS: Atorvastatin Calcium 10 MG TAB PO SCH (21:36)
[2018-08-04 06:34] LABS: INR-International Normal Ratio 3.6; PTT 69.3 SEC (22.9-36.1); Prothrombin Time 36.1 SEC (12.0-14.7)
[2018-08-04] MEDS: metFORMIN 500 MG TAB PO SCH (08:18)
[2018-08-04] MEDS: Carvedilol 6.25 MG TAB PO SCH ×2 (08:18→20:05)
[2018-08-04] MEDS: Lisinopril 20 MG TAB PO SCH (08:18)
[2018-08-04] MEDS: Aspirin Chewable 81 MG TAB PO SCH (08:18)
[2018-08-04] MEDS: Pioglitazone HCl 15 MG TAB PO SCH (08:18)
[2018-08-04] MEDS: Hydrochlorothiazide 25 MG TAB PO SCH (08:19)
[2018-08-04] MEDS: Acetaminophen 325 MG TAB PO SCH ×2 (08:22→20:05)
[2018-08-04 09:39] LABS: #Eosinphils 0.1 thou/uL (0.0-0.7); #Lymphocytes 1.3 thou/uL (1.20-3.40); #Monocytes 0.4 thou/uL (0.11-0.59); #Neutrophils 2.7 thou/uL (1.40-6.50); %Eosinophils 3.2 % (0.0-10.0); %Lymphocytes 28.2 % (21.0-51.0); %Monocytes 8.4 % (0.0-10.0); %Neutrophils 59.2 % (42.0-75.0); Hemoglobin 10.9 g/dL (12.0-16.0); Mean Corpuscular HGB CONC 32.3 g/dL (32.0-36.0); Mean Corpuscular Hemoglobin 35.8 pg (27.0-31.0); Mean Platelet Volume 7.1 fL (7.4-10.4); Platelet Count 200 thou/uL (130-400); RBC Distribution Width 12.6 % (11.5-14.5); Red Blood Cell (RBC) Count 3.05 mill/uL (4.20-5.40); White Blood Cell (WBC) Count 4.6 thou/uL (4.8-10.8)
[2018-08-04 10:02] LABS: Anion Gap 15 mmol/L (10-20); BUN (Urea Nitrogen) 32 mg/dL (9.8-20.1); Calc. Creatinine Clearance 39 mL/min (70-130); Calcium 9.2 mg/dL (7.8-10.44); Carbon Dioxide 24 mmol/L (23-31); Chloride 102 mmol/L (98-107); Estimated GFR-MDRD 44; Glucose 134 mg/dL (83-110); Potassium 4.5 mmol/L (3.5-5.1); Sodium 136 mmol/L (136-145)
--- NOTE | 2018-08-04 13:40 | PDOC.PN ---
- Subjective Encounter Start Date: 08/04/18 Encounter Start Time: 11:30 Subjective: Patient examined today, wearing TLSO brace -: Denies pain, reports it is a 0, reports painful night but gone now -: Asking to have Dr. Villalta consulted - Objective Resuscitation Status - Order Detail: 08/02/18 16:14 Resuscitation Status Routine Resuscitation Status: DNAR: NO Resuscitation Discussed with: Patient Vital Signs & Weight: Vital Signs (12 hours) Temp Pulse Resp BP BP Pulse Ox 08/04/18 10:48 97.6 F 60 18 123/52 L 94 L 08/04/18 07:26 98.2 F 61 18 113/65 96 Weight Weight 68.039 kg I&O: 08/03/18 08/04/18 08/05/18 06:59 06:59 06:59 Intake Total 21 Balance 21 Result Diagrams: 08/04/18 09:31 08/04/18 09:31 Additional Labs: Accuchecks 08/04/18 08/04/18 08/03/18 10:47 05:43 15:20 POC Glucose 149 H 100 134 H Phys Exam - Physical Examination HEENT: PERRLA, moist MMs Neck: no nodes, no JVD Respiratory: no wheezing, clear to auscultation bilateral Cardiovascular: RRR, no significant murmur Gastrointestinal: soft, non-tender Musculoskeletal: no edema, pulses present Neurological: non-focal, normal sensation Lymphatic: no nodes Psychiatric: normal affect, A&O x 3 Skin: no rash, normal turgor Dx/Plan (1) Intractable pain Code(s): R52 - PAIN, UNSPECIFIED Status: Acute (2) Compression fracture of L2 lumbar vertebra Code(s): S32.020A - WEDGE COMPRESSION FRACTURE OF SECOND LUMBAR VERTEBRA, INIT Status: Acute (3) Diabetes mellitus type 2 in obese Code(s): E11.69 - TYPE 2 DIABETES MELLITUS WITH OTHER SPECIFIED COMPLICATION; E66.9 - OBESITY, UNSPECIFIED Status: Chronic (4) Hypertension Code(s): I10 - ESSENTIAL (PRIMARY) HYPERTENSION Status: Chronic - Plan cont current plan of care Dr. Villalta's office contacted, spoke with Deborah -: He reviewed new spine CTs states L2 compression fracture has worsened -: Reports fracture is now outside of cement, recommends pain meds, TSLO brace -: He recommends no further interventions, brace, meds and time. -: She can f/u in office once dc'd. CM is working on placement, possible [facility] swing bed, patient is amenable to this. * .
[2018-08-04] MEDS: Acetaminophen 325 MG TAB PO PRN (14:48)
[2018-08-04] MEDS: Sodium Chloride 0.9% 1,000 ML IV SCH (14:48)
[2018-08-04] MEDS: Atorvastatin Calcium 10 MG TAB PO SCH (20:05)
[2018-08-04] MEDS: Amlodipine 5 MG TAB PO SCH (20:06)
[2018-08-04] MEDS: rOPINIRole HCl 1 MG TAB PO SCH (20:06)
[2018-08-04] MEDS: Famotidine 20 MG TAB PO SCH (20:06)
[2018-08-05] MEDS: Sodium Chloride 0.9% 1,000 ML IV SCH (00:59)
[2018-08-05] MEDS: Acetaminophen 325 MG TAB PO PRN (00:59)
[2018-08-05 06:54] LABS: INR-International Normal Ratio 2.4; PTT 45.4 SEC (22.9-36.1); Prothrombin Time 26.2 SEC (12.0-14.7)
[2018-08-05 07:56] VITALS: TEMP 98
[2018-08-05 08:17] LABS: Anion Gap 11 mmol/L (10-20); BUN (Urea Nitrogen) 24 mg/dL (9.8-20.1); Calc. Creatinine Clearance 56 mL/min (70-130); Carbon Dioxide 24 mmol/L (23-31); Chloride 105 mmol/L (98-107); Estimated GFR-MDRD 66; Glucose 117 mg/dL (83-110); Potassium 4.5 mmol/L (3.5-5.1); Sodium 135 mmol/L (136-145)
[2018-08-05] MEDS: Carvedilol 6.25 MG TAB PO SCH (08:40)
[2018-08-05] MEDS: Aspirin Chewable 81 MG TAB PO SCH (08:40)
[2018-08-05] MEDS: Hydrochlorothiazide 25 MG TAB PO SCH (08:40)
[2018-08-05] MEDS: Acetaminophen 325 MG TAB PO SCH (08:40)
[2018-08-05] MEDS: Pioglitazone HCl 15 MG TAB PO SCH (08:40)
[2018-08-05] MEDS ORDERED: Polyethylene Glycol 3350 17 GM Packet PO SCH (09:00)
[2018-08-05 12:00] VITALS: BP 135/75
--- NOTE | 2018-08-06 02:48 | DIS ---
DATE OF ADMISSION: 08/02/2018 DATE OF DISCHARGE: 08/05/2018 PRIMARY CARE PHYSICIAN: Dr. Smith. CONSULTANTS: None. PROCEDURES: 1. The patient had a thoracic spine CT which showed a chronic compression deformity at T11, degenerative changes of thoracic spine, no acute compression fractures evident, atherosclerosis. 2. The patient had a lumbar spine CT which showed an interval increase in compression injury of the L1 vertebral body. Other findings are stable. HOSPITAL COURSE: Ms. Gonzalez is an 83-year-old female with a history of lumbar compression fracture, initially seen in late March. The patient had an L2 and L1 compression fracture. The patient was evaluated at that time by Neurosurgery. Recommendation was for conservative management. The patient was subsequently admitted again in May at [facility]. The patient was noted to have some progression of the L1 compression fracture. The patient follows with Dr. Braden and also sees Dr. Villalta for pain management. He performed a vertebroplasty in May. Reports that she felt much better, but began to have increasing pain and worse over the last 4-5 days prior to admission. She reports that her pain became intolerable and sought further management. The patient is on a fentanyl patch at 12 mcg every three days and also is taking some Tylenol and tramadol. Family believes that the tramadol has been causing her some nausea and vomiting. The patient did have some relief of pain after she was given morphine by EMS and then by the emergency room. She reported at that time that she did have some pain that radiated down both thighs. She denied having any loss of bowel or bladder function and no other loss of neurologic function including denial of any numbness or specific weakness. The patient does have a history of osteoporosis and has been on medication. CT scans were performed as above, which showed an interval increase in the compression of the L1 vertebra. It is no at 40%. The patient has TLSO brace in place. Physical Therapy was consulted. Reports that she has been able to get up with assistance to the bathroom using a walker. Reports that her pain has decreased over the last several days while ambulating. Reports that it is difficult to get comfortable with the brace on, but otherwise today she reports that the pain is being controlled with Tylenol in addition to her fentanyl patches. Last dose of morphine was given on the 10th at midnight. We did contact Dr. Villalta's office on Saturday. He reviewed her CT scans, remarked that indeed a compression fracture was worse since he saw her, recommended the brace and pain management, and reported that there was no other intervention that he could perform, that she was welcome to follow up with him as an outpatient. The patient requesting to go to a swing bed at [place] [facility] if possible. Reports that her has had recent hip surgery and it is hard for him to take care of her, so placement was requested and approved today. The patient's pain was under better control. The patient's vital signs remained stable. The patient discharged to the swing bed at [facility]. DISCHARGE DIAGNOSES: 1. Intractable pain secondary to lumbar compression fracture at L1, improved. The patient should remain in the TLSO brace. 2. Diabetes mellitus. 3. Hypertension. 4. Hyperlipidemia. 5. Microcytic anemia. REVIEW OF SYSTEMS: The patient was examined prior to discharge. Reports that pain is still present, but manageable. Reports that Tylenol does take the edge off when needed. Reports that she is able to ambulate with assistance with her walker. All other systems reviewed and are negative unless mentioned in the hospital course. PHYSICAL EXAMINATION: VITAL SIGNS: Temperature 98.3, pulse 67, respirations 17, pulse ox is 94% on room air, blood pressure 136/69. GENERAL: The patient appears nontoxic, is in mild pain distress. Reports it is tolerable. She does require several pillows around her head and neck in order to keep herself comfortable. HEENT: Pupils are equally round and reactive to light. Mouth exam is normal. Mucous membranes are moist. NECK: Trachea is midline. No tenderness on palpation. ABDOMEN: Regular rate and rhythm without murmurs. LUNGS: Clear to auscultation bilaterally. Chest wall expansion is equal. Good air exchange. ABDOMEN: Soft, nontender. Bowel sounds are heard. EXTREMITIES: Warm and dry without edema. Pulses are equal bilaterally. MUSCULOSKELETAL: The patient does have spontaneous movement of lower extremities. There is tenderness to palpation to the lumbar spine. ALLERGIES: NONE. MEDICATIONS: Home medications are restarted, 1. Tylenol 625 mg p.o. b.i.d. 2. Norvasc 5 mg p.o. at bedtime. 3. Coreg 12.5 mg p.o. b.i.d. 4. Vitamin D3 2000 units p.o. at bedtime. 5. Fentanyl patch 12 mcg every three days. 6. Loperamide 2 mg p.o. p.r.n. as needed. 7. Actos and metformin 15/500 mg p.o. one daily. 8. Zantac 150 mg p.o. at bedtime. 9. Ropinirole 1 mg p.o. at bedtime. 10. Zocor 20 mg p.o. at bedtime. 11. Flomax 0.4 mg p.o. daily. 12. Aspirin 81 mg p.o. daily. 13. Hydrochlorothiazide 25 mg p.o. daily. 14. Zestril 20 mg p.o. daily. 15. MiraLAX 17 g p.o. daily. 16. Coumadin 1 mg p.o. daily. DISCHARGE CONDITION: Stable. DISPOSITION: The patient will be discharged to the swing bed at [facility]. REFERRALS: The patient should follow up with Dr. Braden within the next week after discharge. The patient should have INR rechecked. Follow up with Dr. Villalta in the next 2 to 3 weeks. Job ID: [id number]
== END 2018-08-05 13:44 ==
LOC: ERS 09:23 → SURG A 15:48
PROVIDERS: ADMIT Internal Medicine; ATTEND Internal Medicine
DX: M48.54XA Collapsed vertebra, not elsewhere classified, thoracic region, initial encounter for fracture (principal); M48.56XA Collapsed vertebra, not elsewhere classified, lumbar region, initial encounter for fracture; E11.9 Type 2 diabetes mellitus without complications; I10 Essential (primary) hypertension; E78.5 Hyperlipidemia, unspecified; D50.9 Iron deficiency anemia, unspecified; M81.0 Age-related osteoporosis without current pathological fracture; I48.91 Unspecified atrial fibrillation; I25.10 Atherosclerotic heart disease of native coronary artery without angina pectoris; E66.9 Obesity, unspecified; Z68.28 Body mass index [BMI] 28.0-28.9, adult; Z90.49 Acquired absence of other specified parts of digestive tract; Z90.89 Acquired absence of other organs; Z95.0 Presence of cardiac pacemaker; Z79.01 Long term (current) use of anticoagulants; Z86.73 Personal history of transient ischemic attack (TIA), and cerebral infarction without residual deficits; Z79.82 Long term (current) use of aspirin; Z79.891 Long term (current) use of opiate analgesic; Z79.899 Other long term (current) drug therapy
CPT/HCPCS: 72128; 72131; 80048 ×2; 80053; 82962 ×3; 85025 ×2; 85610 ×3; 85730 ×2; 96361 ×2; 96374; 97110; 97116 ×2; 97139; 97530; 97535; 99285; G0378 ×3; 36415; 36416; J2270; Q0162

== ENCOUNTER 2018-09-02 10:32 | Outpatient (CLI) | payer MEDICARE ==
--- NOTE | 2018-09-02 16:42 | NM ---
NUCLEAR MEDICINE BONE SCAN WHOLE BODY: (SKELETAL SCINTIGRAPHY) 09/02/2018 HISTORY: An 83-year-old female with S22.000A, thoracic compression fracture. Worse or new pain. COMPARISON: 07/04/2018 TECHNIQUE: IV injection of [id number]: 31.6 mCi 3 hour delayed whole body skeletal scintigraphy in anterior and posterior views. FINDINGS: Again noted is diffusely strongly increased uptake throughout the L1 vertebral body. The increased u ptake diffusely throughout the L2 vertebral body has become slightly weaker since two months ago. There is a new finding of intensely increased uptake throughout one of the lower thoracic vertebral b odies, either T10 or T11. Despite the fact that the CTs of 08/02/2018 demonstrate that the T11 verte bral body has the severe burst fracture compression deformity, today's nuclear medicine bone scan sug gests that it is probably T10 rather than T11. The previously demonstrated single small focus of inc reased uptake at the anterior aspect of one of the right ribs is no longer visualized. Instead, ther e is a new similar such focus involving one of the contralateral left anterior ribs. This is may be a tiny fracture at the costochondral junction. There is no asymmetrical focus of increased uptake in the pelvis, long bones, or skull. IMPRESSION: 1. New intense uptake at lower thoracic spine is evidence for new acute or subacute compression or b urst fracture involving one of the lower thoracic vertebral bodies, either T10 or T11, favor T10. A f ollow-up thoracic spine CT may be useful 2. Nonacute burst fractures of L1 and L2, treated with vertebroplasty. The intensity of uptake of t he L2 vertebral body has decreased since the previous study. AMADA Subramanian POS: NAIN
== END 2018-09-02 10:33 | disposition home or self-care (01) ==
LOC: NM 10:32
PROVIDERS: ATTEND Anesthesiology Pain Medicine
DX: S22.009D Unspecified fracture of unspecified thoracic vertebra, subsequent encounter for fracture with routine healing (principal); Z98.890 Other specified postprocedural states
CPT/HCPCS: 78306; A9503

== ENCOUNTER 2018-09-23 07:13 | Day surgery (SDC) | payer MEDICARE ==
[2018-09-22 11:18] VITALS: BMI 27.4
[2018-09-23 09:05] LABS: INR-International Normal Ratio 1.3
[2018-09-23 09:16] LABS: Anion Gap 12 mmol/L (10-20); BUN (Urea Nitrogen) 12 mg/dL (9.8-20.1); Calc. Creatinine Clearance 60 mL/min (70-130); Calcium 9.1 mg/dL (7.8-10.44); Carbon Dioxide 28 mmol/L (23-31); Chloride 102 mmol/L (98-107); Estimated GFR-MDRD 71; Glucose 117 mg/dL (83-110); Potassium 3.9 mmol/L (3.5-5.1); Sodium 138 mmol/L (136-145)
== END 2018-09-23 09:45 | disposition home or self-care (01) ==
LOC: SDC 07:13
PROVIDERS: ATTEND Anesthesiology Pain Medicine
DX: S22.000A Wedge compression fracture of unspecified thoracic vertebra, initial encounter for closed fracture (principal); S32.000A Wedge compression fracture of unspecified lumbar vertebra, initial encounter for closed fracture; M54.14 Radiculopathy, thoracic region; M81.0 Age-related osteoporosis without current pathological fracture; Z79.01 Long term (current) use of anticoagulants; Z79.82 Long term (current) use of aspirin; Z79.899 Other long term (current) drug therapy; Z95.0 Presence of cardiac pacemaker; Z98.890 Other specified postprocedural states; Z53.9 Procedure and treatment not carried out, unspecified reason
CPT/HCPCS: 36415; 80048; 85610

== ENCOUNTER 2018-10-05 19:24 | Observation (INO) | payer MEDICARE ==
--- NOTE | 2018-10-05 20:29 | CT ---
CT lumbar spine noncontrast HISTORY: Worsening back pain. Prior fractures. COMPARISON: 08/02/2018 and 06/13/2018. FINDINGS: Calcification throughout the arterial structures. Vertebroplasty cementation and partial co mpression at the L1 and L2 levels are similar in appearance to the prior study. Since the previous exam, there has been compression of the L3 superior and inferior end plates with l oss of height centrally by approximately 50%. No retropulsion. Osseous structures are demineralized. Degenerative changes are similar in appearance to the previous study. IMPRESSION: Interval partial compression of L3, estimated at 50%. No retropulsion. Vertebroplasty at the L1 and L2 levels and other findings are stable.
[2018-10-05] MEDS ORDERED: Ketorolac Tromethamine 30 MG/ML VIAL ONE (20:36)
[2018-10-05] MEDS ORDERED: Morphine 2 MG/ML SYRINGE ONE (20:36)
[2018-10-06 00:16] LABS: #Basophils 0.1 thou/uL (0.0-0.2); #Eosinphils 0.1 thou/uL (0.0-0.7); #Lymphocytes 1.7 thou/uL (1.20-3.40); #Monocytes 0.5 thou/uL (0.11-0.59); #Neutrophils 2.1 thou/uL (1.40-6.50); %Basophils 1.4 % (0.0-1.0); %Eosinophils 2.4 % (0.0-10.0); %Lymphocytes 38.6 % (21.0-51.0); %Neutrophils 46.6 % (42.0-75.0); Mean Corpuscular HGB CONC 33.1 g/dL (32.0-36.0); Mean Corpuscular Hemoglobin 36.8 pg (27.0-31.0); Mean Platelet Volume 7.1 fL (7.4-10.4); Platelet Count 199 thou/uL (130-400); RBC Distribution Width 13.5 % (11.5-14.5); Red Blood Cell (RBC) Count 2.71 mill/uL (4.20-5.40); White Blood Cell (WBC) Count 4.5 thou/uL (4.8-10.8)
[2018-10-06 00:20] LABS: Prothrombin Time 22.6 SEC (12.0-14.7)
[2018-10-06] MEDS ORDERED: Senokot S 8.6-50 MG TAB PO PRN ×2 (00:24→02:46)
[2018-10-06] MEDS ORDERED: Dextrose 5% in Water 1,000 ML IV PRN ×2 (00:24→02:41)
[2018-10-06] MEDS ORDERED: HYDROcodone/Acetaminophen 5/325 mg Tablet PO PRN (00:24)
[2018-10-06] MEDS ORDERED: Calcium Carbonate 500 MG ChewTAB PO PRN ×2 (00:24→02:40)
[2018-10-06] MEDS ORDERED: Insulin Regular 300 UNITS/3 ML VIAL SC PRN ×4 (00:24→02:41)
[2018-10-06] MEDS ORDERED: Ondansetron PF 4 MG/2 ML Vial IVP PRN ×2 (00:24→02:45)
[2018-10-06] MEDS ORDERED: Ondansetron ODT 4 MG TAB PO PRN ×2 (00:24→02:45)
[2018-10-06] MEDS ORDERED: Acetaminophen 325 MG TAB PO PRN ×2 (00:24→02:40)
[2018-10-06] MEDS ORDERED: Dextrose 50% Abboject 50 ML SYRINGE SLOW IVP PRN ×2 (00:24→02:41)
[2018-10-06] MEDS ORDERED: Labetalol HCl 100 MG/20 ML VIAL SLOW IVP PRN ×2 (00:28→02:46)
[2018-10-06 00:43] LABS: ALT (SGPT) 9 U/L (8-55); AST (SGOT) 21 U/L (5-34); Albumin 3.7 g/dL (3.4-4.8); Alkaline Phosphatase 96 U/L (40-150); Anion Gap 12 mmol/L (10-20); BUN (Urea Nitrogen) 19 mg/dL (9.8-20.1); Bilirubin, Total 0.5 mg/dL (0.2-1.2); Calc. Creatinine Clearance 0 mL/min (70-130); Calcium 9.3 mg/dL (7.8-10.44); Carbon Dioxide 28 mmol/L (23-31); Chloride 100 mmol/L (98-107); Estimated GFR-MDRD 65; Globulin 2.8 g/dL (2.4-3.5); Glucose 98 mg/dL (83-110); Magnesium 1.9 mg/dL (1.6-2.6); Potassium 3.6 mmol/L (3.5-5.1); Protein, Total 6.5 g/dL (6.0-8.3); Sodium 136 mmol/L (136-145)
--- NOTE | 2018-10-06 01:51 | HP ---
The patient was seen and examined on 05 October 2018. CHIEF COMPLAINT: Intractable back pain. HISTORY OF PRESENT ILLNESS: The patient is an 83-year-old female with chronic low back pain due to lumbar compression fractures, presented to the hospital with above complaints. She was discharged from this facility 2 months ago to swing bed. She was released from the swing bed after 3 weeks stay. She currently lives at home. The pain is controlled with fentanyl patch along with hydrocodone. Two weeks ago, the patient was scheduled for kyphoplasty, which was canceled due to elevated INR as well as bronchitis. The low back pain is progressively getting worse. The pain got severe this afternoon. It was radiating to the right leg. It was sharp in nature, aggravated by movement. She was unable to stand due to this pain despite using TLSO brace. She then presented to the emergency room. She denies any fall or injuries. No fever or chills reported. The patient denies any loss of bladder or bowel control. The patient was seen and examined on 05 October 2018. Lymph nodes, no palpable lymph nodes in the neck. PAST MEDICAL HISTORY: 1. Diabetes mellitus type 2. 2. Hypertension. 3. Hyperlipidemia. 4. History of chronic low back pain due to compression fractures. 5. CVA. 6. Osteoporosis. 7. Paroxysmal atrial fibrillation, on anticoagulation. 8. Osteoporosis. PAST SURGICAL HISTORY: 1. Cholecystectomy. 2. Tonsillectomy. 3. Vertebroplasty. 4. Pacemaker placement. 5. Tonsillectomy. ALLERGIES: NO KNOWN DRUG ALLERGIES. HOME MEDICATIONS: The patient is unable to recall any of her home medications. The family is not at the bedside. SOCIAL HISTORY: The patient currently lives at home with her family. She makes her own decision with the help of her family. No smoking, alcohol, or drug use. She is full code. FAMILY HISTORY: Positive for osteoporosis in her mother. REVIEW OF SYSTEMS: The patient denies any chest pain, shortness of breath, palpitations, fever, or chills. All other review of systems were reviewed and were found negative. PHYSICAL EXAMINATION: VITAL SIGNS: Temperature 97.6, respirations of 18, pulse rate of 76, blood pressure of 147/57, O2 saturation of 97% on room air. GENERAL: An 83-year-old female, in mild distress due to back pain. HEENT: Head is atraumatic and normocephalic. Sclerae anicteric. Moist mucous membranes. No oral lesion. NECK: Supple. No JVD appreciated. No carotid bruit. LUNGS: Clear to auscultation bilaterally. HEART: S1 and S2 present. Regular rate and rhythm. No rubs or gallops appreciated. ABDOMEN: Soft and nontender. Bowel sounds present. EXTREMITIES: No edema or calf tenderness. NEUROLOGY: Cranial nerves II through XII are normal on examination. Power was 5/5 in all extremities. The patient had difficulty moving the right lower extremity due to intractable back pain. Sensation to touch was normal bilaterally. The patient has normal bladder and bowel control. PSYCHIATRY: The patient is alert, awake, and oriented x3. SKIN: Warm and dry. LYMPH NODES: No palpable lymph nodes in the neck. PERIPHERAL VASCULAR: Radial pulses are palpable bilaterally. MUSCULOSKELETAL: No other joint swelling or tenderness. LABORATORY FINDINGS: INR last week was 1.6. Creatinine earlier this month was 0.78. Vitamin B12, folic acid, and TSH were normal. WBC count was 9.[address] admission[address] Lumbar spine CT, by my review, showed partial compression of L3 estimated 50% without any retropulsion. There were degenerative changes. IMPRESSION: 1. Acute low back pain secondary to compression fracture at L3. 2. Chronic pain syndrome on chronic narcotic. 3. Paroxysmal atrial fibrillation, on anticoagulation. 4. Hypertension. 5. Hyperlipidemia. 6. Diabetes mellitus type 2. 7. Osteoporosis. 8. Chronic kidney disease, stage 2. 9. History of cerebrovascular accident. PLAN: The patient will be monitored as a 23-hour observation on the medical floor. Inpatient rehab already evaluated the patient in the emergency room. She is awaiting insurance approval. We will continue fentanyl patch and [place]. Home medications are unavailable at this time. We will resume other home medications once confirmed. We will get PT/INR checked and adjust Coumadin accordingly. We will continue TLSO brace. We will consult Dr. Villalta in a.m. for pain medication optimization. Insulin sliding scale. Plan of care was discussed with the patient in detail. She stated understanding. Job ID: [id number]
[2018-10-06 02:45] VITALS: BMI 25.5
[2018-10-06] MEDS: HYDROcodone/Acetaminophen 5/325 mg Tablet PO PRN ×2 (07:51→14:48)
[2018-10-06] MEDS: Calcium Carbonate + Vit D 1 TAB PO SCH ×2 (07:52→16:57)
[2018-10-06] MEDS: Carvedilol 25 MG TAB PO SCH ×2 (07:52→16:57)
[2018-10-06] MEDS: Lisinopril 20 MG TAB PO SCH (07:55)
[2018-10-06] MEDS ORDERED: Calcium Carbonate + Vit D 1 TAB PO SCH (08:00)
[2018-10-06] MEDS ORDERED: Carvedilol 25 MG TAB PO SCH (08:00)
[2018-10-06] MEDS ORDERED: Lisinopril 20 MG TAB PO SCH (09:00)
--- NOTE | 2018-10-06 12:32 | PDOC.PN ---
- Subjective Encounter Start Date: 10/06/18 Encounter Start Time: 12:20 Subjective: f/u for back pain with acute/subacute L3 compression fx. Feels better -: currently on [place]. Awaiting eval by pain service and likely may need -: surgical intervention or vertebroplasty. - Objective Resuscitation Status - Order Detail: 10/06/18 00:24 Resuscitation Status Routine Resuscitation Status: FULL: Full Resuscitation MAR Reviewed: Yes Vital Signs & Weight: Vital Signs (12 hours) Temp Pulse Resp BP BP Pulse Ox 10/06/18 11:36 97.6 F 60 18 114/63 96 10/06/18 07:55 124/67 10/06/18 07:40 97.6 F 61 20 124/67 95 10/06/18 04:00 97.8 F 70 18 157/58 H 92 L 10/06/18 01:47 95 10/06/18 01:17 98.6 F 78 20 143/64 H 95 Weight Admit Weight 139 lb 12.8 oz Weight 139 lb 12.8 oz I&O: 10/05/18 10/06/18 10/07/18 06:59 06:59 06:59 Intake Total 87 Balance 87 Result Diagrams: 10/06/18 00:05 10/06/18 00:05 Additional Labs: Accuchecks 10/06/18 10/06/18 10/06/18 11:39 04:46 02:43 POC Glucose 104 102 91 Phys Exam - Physical Examination Constitutional: NAD HEENT: PERRLA, sclera anicteric, oral pharynx no lesions Neck: no nodes, no JVD, supple, full ROM Respiratory: no wheezing, no rales, no rhonchi, clear to auscultation bilateral S1, S2 Cardiovascular: RRR, no significant murmur, no rub, gallop Gastrointestinal: soft, non-tender, no distention, positive bowel sounds Musculoskeletal: no edema, pulses present Neurological: normal sensation, moves all 4 limbs Psychiatric: A&O x 3 Skin: normal turgor, cap refill <2 seconds Dx/Plan (1) Compression fracture of lumbar vertebra Code(s): S32.000A - WEDGE COMPRESSION FRACTURE OF UNSP LUMBAR VERTEBRA, INIT Status: Acute Qualifiers: Encounter type: subsequent encounter Lumbar vertebra fracture level: L3 Fracture type: closed Comment: Intractable pain improved with [place], continue TLSO brace, await consult from pain service, may need vertebroplasty, continue Duragesic patch (2) Diabetes mellitus type 2 in obese Code(s): E11.69 - TYPE 2 DIABETES MELLITUS WITH OTHER SPECIFIED COMPLICATION; E66.9 - OBESITY, UNSPECIFIED Status: Chronic Comment: ISS, resume home DM regimen, ADA (3) Hypertension Code(s): I10 - ESSENTIAL (PRIMARY) HYPERTENSION Status: Chronic Qualifiers: Hypertension type: essential hypertension Qualified Code(s): I10 - Essential (primary) hypertension Comment: Resume home BP regimen, monitor clinical response (4) Intractable pain Code(s): R52 - PAIN, UNSPECIFIED Status: Acute Comment: Continue Duragesic patch and [place], pain service consult pending (5) Chronic anticoagulation Code(s): 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
[2018-10-06] MEDS ORDERED: [UNRECOGNIZED DRUG - OTHER] PO SCH (21:00)
[2018-10-06] MEDS ORDERED: rOPINIRole HCl 1 MG TAB PO SCH (21:00)
[2018-10-06] MEDS ORDERED: METFORMIN HCL PO SCH (21:00)
[2018-10-06] MEDS ORDERED: Amlodipine 5 MG TAB PO SCH (21:00)
[2018-10-06] MEDS ORDERED: PIOGLITAZONE HCL PO SCH (21:00)
[2018-10-06] MEDS: rOPINIRole HCl 1 MG TAB PO SCH (21:42)
[2018-10-06] MEDS: Amlodipine 5 MG TAB PO SCH (21:42)
[2018-10-07] MEDS: HYDROcodone/Acetaminophen 5/325 mg Tablet PO PRN ×2 (02:58→13:52)
[2018-10-07 06:48] LABS: INR-International Normal Ratio 1.7; Prothrombin Time 20.3 SEC (12.0-14.7)
[2018-10-07] MEDS: Carvedilol 25 MG TAB PO SCH ×2 (08:27→17:55)
[2018-10-07] MEDS: Calcium Carbonate + Vit D 1 TAB PO SCH ×2 (08:28→17:55)
[2018-10-07] MEDS: Lisinopril 20 MG TAB PO SCH (08:31)
--- NOTE | 2018-10-07 16:46 | PDOC.PN ---
- Subjective Encounter Start Date: 10/07/18 Encounter Start Time: 16:45 Subjective: f/u for intractable back pain and L3 compression fx. Some pain -: in RLE and back but improved with pain meds. - Objective Resuscitation Status - Order Detail: 10/06/18 00:24 Resuscitation Status Routine Resuscitation Status: FULL: Full Resuscitation MAR Reviewed: Yes Vital Signs & Weight: Vital Signs (12 hours) Temp Pulse Resp BP BP Pulse Ox 10/07/18 11:00 98.1 F 60 18 111/49 L 94 L 10/07/18 08:31 150/61 H 10/07/18 07:00 97.6 F 66 18 150/61 H 95 Weight Admit Weight 139 lb 12.8 oz Weight 139 lb 12.8 oz I&O: 10/06/18 10/07/18 10/08/18 06:59 06:59 06:59 Intake Total 87 1400 800 Output Total 150 Balance 87 1250 800 Result Diagrams: 10/06/18 00:05 10/06/18 00:05 Additional Labs: Accuchecks 10/07/18 10/07/18 10/07/18 16:22 11:11 04:55 POC Glucose 99 104 88 10/06/18 10/06/18 19:47 16:24 POC Glucose 125 H 114 H Laboratory Tests 10/07/18 06:13 PT 20.3 H INR 1.7 Phys Exam - Physical Examination Constitutional: NAD HEENT: PERRLA, sclera anicteric, oral pharynx no lesions Neck: no nodes, no JVD, supple, full ROM Respiratory: no wheezing, no rales, no rhonchi, clear to auscultation bilateral S1, S2 Cardiovascular: RRR, no significant murmur, no rub, gallop Gastrointestinal: soft, non-tender, no distention, positive bowel sounds Musculoskeletal: no edema, pulses present Neurological: normal sensation, moves all 4 limbs Psychiatric: A&O x 3 Skin: normal turgor, cap refill <2 seconds Dx/Plan (1) Compression fracture of lumbar vertebra Code(s): S32.000A - WEDGE COMPRESSION FRACTURE OF UNSP LUMBAR VERTEBRA, INIT Status: Acute Qualifiers: Encounter type: subsequent encounter Lumbar vertebra fracture level: L3 Fracture type: closed Comment: Intractable pain improved with [place], continue TLSO brace, await consult from pain service, may need vertebroplasty, continue Duragesic patch (2) Diabetes mellitus type 2 in obese Code(s): E11.69 - TYPE 2 DIABETES MELLITUS WITH OTHER SPECIFIED COMPLICATION; E66.9 - OBESITY, UNSPECIFIED Status: Chronic Comment: ISS, resume home DM regimen, ADA (3) Hypertension Code(s): I10 - ESSENTIAL (PRIMARY) HYPERTENSION Status: Chronic Qualifiers: Hypertension type: essential hypertension Qualified Code(s): I10 - Essential (primary) hypertension Comment: Resume home BP regimen, monitor clinical response (4) Intractable pain Code(s): R52 - PAIN, UNSPECIFIED Status: Acute Comment: Continue Duragesic patch and [place], pain service consult pending (5) Chronic anticoagulation Code(s): 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 Kyphoplasty in am * AM lab: PT/INR
[2018-10-07] MEDS: rOPINIRole HCl 1 MG TAB PO SCH (20:25)
[2018-10-07] MEDS: Amlodipine 5 MG TAB PO SCH (20:25)
[2018-10-07] MEDS: Pioglitazone HCl 15 MG TAB PO SCH (22:31)
[2018-10-07] MEDS: metFORMIN 500 MG TAB PO SCH (22:31)
[2018-10-08] MEDS: HYDROcodone/Acetaminophen 5/325 mg Tablet PO PRN ×4 (05:22→22:21)
[2018-10-08 06:49] LABS: INR-International Normal Ratio 1.4; Prothrombin Time 16.9 SEC (12.0-14.7)
[2018-10-08] MEDS: Calcium Carbonate + Vit D 1 TAB PO SCH ×2 (10:16→16:01)
[2018-10-08] MEDS: Lisinopril 20 MG TAB PO SCH (10:16)
[2018-10-08] MEDS: Carvedilol 25 MG TAB PO SCH ×2 (10:16→16:01)
--- NOTE | 2018-10-08 13:51 | PDOC.PN ---
- Subjective Encounter Start Date: 10/08/18 Encounter Start Time: 13:40 Subjective: f/u for back pain and L3 compression fx awaiting kyphoplasty -: scheduled 10/09/18. Feel ok as long as she moves out of bed -: and changes position. - Objective Resuscitation Status - Order Detail: 10/06/18 00:24 Resuscitation Status Routine Resuscitation Status: FULL: Full Resuscitation MAR Reviewed: Yes Vital Signs & Weight: Vital Signs (12 hours) Temp Pulse Resp BP BP Pulse Ox 10/08/18 12:05 98.3 F 60 18 105/61 94 L 10/08/18 10:16 124/56 L 10/08/18 07:39 98.2 F 60 14 124/56 L 94 L 10/08/18 05:05 97.9 F 63 16 137/71 94 L Weight Admit Weight 139 lb 12.8 oz Weight 139 lb 12.8 oz I&O: 10/07/18 10/08/18 10/09/18 06:59 06:59 06:59 Intake Total 1400 2450 Output Total 150 300 Balance 1250 2150 Result Diagrams: 10/06/18 00:05 10/06/18 00:05 Additional Labs: Accuchecks 10/08/18 10/08/18 10/07/18 11:29 05:05 19:43 POC Glucose 128 H 97 112 H 10/07/18 16:22 POC Glucose 99 Laboratory Tests 10/08/18 06:18 PT 16.9 H INR 1.4 Phys Exam - Physical Examination Constitutional: NAD HEENT: PERRLA, sclera anicteric, oral pharynx no lesions Neck: no nodes, no JVD, supple, full ROM Respiratory: no wheezing, no rales, no rhonchi, clear to auscultation bilateral Cardiovascular: RRR, no significant murmur, no rub, gallop Gastrointestinal: soft, non-tender, no distention, positive bowel sounds Musculoskeletal: no edema, pulses present Neurological: normal sensation, moves all 4 limbs Psychiatric: A&O x 3 Skin: normal turgor, cap refill <2 seconds Dx/Plan (1) Compression fracture of lumbar vertebra Code(s): S32.000A - WEDGE COMPRESSION FRACTURE OF UNSP LUMBAR VERTEBRA, INIT Status: Acute Qualifiers: Encounter type: subsequent encounter Lumbar vertebra fracture level: L3 Fracture type: closed Comment: Intractable pain improved with [place], continue TLSO brace, plan for kyphoplasty 10/09/18, continue Duragesic patch (2) Diabetes mellitus type 2 in obese Code(s): E11.69 - TYPE 2 DIABETES MELLITUS WITH OTHER SPECIFIED COMPLICATION; E66.9 - OBESITY, UNSPECIFIED Status: Chronic Comment: ISS, resume home DM regimen, ADA (3) Hypertension Code(s): I10 - ESSENTIAL (PRIMARY) HYPERTENSION Status: Chronic Qualifiers: Hypertension type: essential hypertension Qualified Code(s): I10 - Essential (primary) hypertension Comment: Resume home BP regimen, monitor clinical response (4) Intractable pain Code(s): R52 - PAIN, UNSPECIFIED Status: Acute Comment: Continue Duragesic patch and [place], plan for kyphoplasty 10/09/18 (5) Chronic anticoagulation Code(s): Z79.01 - JAIL (CURRENT) USE OF ANTICOAGULANTS Status: Chronic Comment: Longstanding Coumadin x 13yrs after CVA, currently on hold, INR 1.4 - Plan PT/OT, clinical social work aide, out of bed/ambulate, DVT proph w/SCDs Stable currently -: Continue [place]/Duragesic patch -: OOB with PT -: Plan for kyphoplasty 10/09/18 -: Likely to inpt rehab after kyphoplasty * .
[2018-10-08] MEDS: Amlodipine 5 MG TAB PO SCH (20:23)
[2018-10-08] MEDS: rOPINIRole HCl 1 MG TAB PO SCH (20:23)
[2018-10-08] MEDS: metFORMIN 500 MG TAB PO SCH ×2 (20:23→20:27)
[2018-10-08] MEDS: Pioglitazone HCl 15 MG TAB PO SCH (20:23)
[2018-10-09] MEDS: HYDROcodone/Acetaminophen 5/325 mg Tablet PO PRN ×4 (04:11→22:49)
[2018-10-09 06:32] LABS: INR-International Normal Ratio 1.3; Prothrombin Time 15.8 SEC (12.0-14.7)
[2018-10-09] MEDS: Calcium Carbonate + Vit D 1 TAB PO SCH ×2 (07:48→17:09)
[2018-10-09] MEDS: Lisinopril 20 MG TAB PO SCH (07:48)
[2018-10-09] MEDS: Carvedilol 25 MG TAB PO SCH ×2 (08:23→16:51)
[2018-10-09] MEDS ORDERED: ePHEDrine 50 MG/ML VIAL ONE (11:29)
[2018-10-09] MEDS ORDERED: Lidocaine 1% PF 5 ML VIAL ONE (11:29)
[2018-10-09] MEDS ORDERED: PROPOFOL 200 MG/20 ML VIAL ONE (11:29)
--- NOTE | 2018-10-09 15:18 | PDOC.PN ---
- Subjective Encounter Start Date: 10/09/18 Encounter Start Time: 15:14 Ms. Gonzalez was seen today in follow-up of Chronic low Back pain, and lumbar disc disease- She does not have any new complaints. - Objective Resuscitation Status - Order Detail: 10/06/18 00:24 Resuscitation Status Routine Resuscitation Status: FULL: Full Resuscitation MAR Reviewed: Yes Vital Signs & Weight: Vital Signs (12 hours) Temp Pulse Resp BP Pulse Ox 10/09/18 07:57 98.2 F 61 18 121/68 95 Weight Admit Weight 139 lb 12.8 oz Weight 139 lb 12.8 oz I&O: 10/08/18 10/09/18 10/10/18 06:59 06:59 06:59 Intake Total 2450 1410 Output Total 300 0 Balance 2150 1410 Result Diagrams: 10/06/18 00:05 10/06/18 00:05 Additional Labs: Accuchecks 10/09/18 10/08/18 10/08/18 03:58 19:50 16:19 POC Glucose 102 157 H 98 Phys Exam - Physical Examination HEENT: PERRLA Respiratory: no wheezing, no rales, no rhonchi, clear to auscultation bilateral Cardiovascular: RRR, no significant murmur, no rub Gastrointestinal: soft, non-tender, no distention, positive bowel sounds Musculoskeletal: no edema, pulses present Dx/Plan (1) Lumbar disc disease Code(s): M51.9 - UNSP THORACIC, THORACOLUM AND LUMBOSACR INTVRT DISC DISORDER Status: Acute (2) Chronic anticoagulation Code(s): Z79.01 - INTERMEDIATE (CURRENT) USE OF ANTICOAGULANTS Status: Chronic Comment: Longstanding Coumadin x 13yrs after CVA, currently on hold, INR 1.4 (3) Intractable pain Code(s): R52 - PAIN, UNSPECIFIED Status: Acute Comment: Continue Duragesic patch and [place], plan for kyphoplasty 10/09/18 (4) Diabetes mellitus type 2 in obese Code(s): E11.69 - TYPE 2 DIABETES MELLITUS WITH OTHER SPECIFIED COMPLICATION; E66.9 - OBESITY, UNSPECIFIED Status: Chronic Comment: ISS, resume home DM regimen, ADA (5) Hypertension Code(s): I10 - ESSENTIAL (PRIMARY) HYPERTENSION Status: Chronic Qualifiers: Hypertension type: essential hypertension Qualified Code(s): I10 - Essential (primary) hypertension Comment: Resume home BP regimen, monitor clinical response (6) Atrial fibrillation Code(s): I48.91 - UNSPECIFIED ATRIAL FIBRILLATION Status: Chronic Qualifiers: Atrial fibrillation type: paroxysmal Qualified Code(s): I48.0 - Paroxysmal atrial fibrillation - Plan * Lumbar Disc Disease- she is s/p Kyphoplasty * HTN- blood pressure is stable * DM- blood glucose is stable * AFIB - her heart rate is stable- Coumadin is on hold- re-start when ok by Neurosurgery.
--- NOTE | 2018-10-09 18:53 | DIS ---
DATE OF ADMISSION: 10/05/2018 DATE OF DISCHARGE: 10/09/2018 PRIMARY CARE PHYSICIAN: Selvin Smith, DISCHARGE DISPOSITION: Home. PRIMARY DISCHARGE DIAGNOSES: 1. Lumbar compression fracture at L3. 2. Chronic low back pain. 3. Paroxysmal atrial fibrillation, on anticoagulation. 4. Hypertension. 5. Hyperlipidemia. 6. Diabetes mellitus, type 2. 7. Osteoporosis. 8. Chronic kidney disease, stage 2. 9. History of cerebrovascular accident. DISCHARGE MEDICATIONS: Include; 1. Zofran 4 mg q.6 p.r.n. 2. [place] 5/325 one p.o. q.6 as needed. 3. Fentanyl patch 25 mcg every 3 days. 4. Simvastatin 20 mg at bedtime. 5. Ropinirole 1 mg at bedtime. 6. Ranitidine 150 mg at bedtime. 7. Actos and metformin combination 15/500 p.o. at bedtime. 8. Loperamide 2 mg as directed. 9. Lisinopril 20 mg daily. 10. Hydrochlorothiazide 25 mg daily. 11. Vitamin D3 of 2000 units at bedtime. 12. Carvedilol 12.5 mg twice daily. 13. Aspirin 81 mg daily. 14. Amlodipine 5 mg at bedtime. 15. Tylenol 650 mg twice a day. PROCEDURES DONE DURING ADMISSION: The patient had a CT scan of the lumbar spine showing an interval partial compression at L3 estimated at 50%. There was no retropulsion. The vertebroplasty at the L1-L2 levels were stable. CODE STATUS: Full code. ALLERGIES: NO KNOWN DRUG ALLERGIES. HOSPITAL COURSE: Ms. Gonzalez is a pleasant 83-year-old female, who was admitted to the hospital due to severe intractable lower back pain. This was due to a lumbar compression fracture. The patient was seen by Neurosurgery and she underwent a kyphoplasty. She had good results from this with improvement in pain control. She was still quite weak and unstable on her feet and as a result, she was unsafe to be discharged directly home. For this reason, she was evaluated for rehab as well as detention and she qualified for detention stay and is being transferred to the [facility] bed in [place]. She was on Coumadin for anticoagulation, for atrial fibrillation. This is currently on hold due to the spinal surgery and will need to be restarted once this is appropriate by her Neurosurgeon. Job ID: [id number]
[2018-10-09] MEDS: Amlodipine 5 MG TAB PO SCH (20:09)
[2018-10-09] MEDS: metFORMIN 500 MG TAB PO SCH (20:12)
[2018-10-09] MEDS: Pioglitazone HCl 15 MG TAB PO SCH (20:12)
[2018-10-09] MEDS: rOPINIRole HCl 1 MG TAB PO SCH (20:12)
[2018-10-10] MEDS: HYDROcodone/Acetaminophen 5/325 mg Tablet PO PRN ×2 (04:39→12:57)
[2018-10-10 06:45] LABS: INR-International Normal Ratio 1.2; Prothrombin Time 15.1 SEC (12.0-14.7)
[2018-10-10] MEDS: Carvedilol 25 MG TAB PO SCH (07:58)
[2018-10-10] MEDS: Calcium Carbonate + Vit D 1 TAB PO SCH (07:58)
[2018-10-10] MEDS: Lisinopril 20 MG TAB PO SCH (07:58)
[2018-10-10 08:00] VITALS: BP 117/66
[2018-10-10 08:32] VITALS: TEMP 98.1
--- NOTE | 2018-10-13 09:30 | PRG ---
DATE OF SERVICE: 10/10/2018 SUBJECTIVE: Ms. Gonzalez is status post T10 and L3 kyphoplasty on yesterday addressing vertebral fractures at these levels. She continues to report Low T and lumbar spine pain, but states it is manageable with the current medication regimen and with lying/sitting still. She has been able to transfer out of bed to a chair and eat lunch with manageable pain. Ms Gonzalez also states she was able to walk around the room this morning. Right lumbar radicular pain in a L3 and L4 pattern is her primary concern. This pain increases with movement of the right leg and with position changes, transfers and standing. This is likely radicular pain from the known L3 compression fracture and should improve. We will follow up with this on an outpatient basis and consider epidural steroids if it remains problematic. Ms. Gonzalez required only 2 doses of 1 [place] 5/325 today, this is in addition to her Duragesic 25 mcg patch. OBJECTIVE: GENERAL: The patient is sitting in her chair, she is eating lunch. She is conversant. TLSO brace is in place. is at bedside. NEUROLOGIC: Strength in the lower extremities is intact and symmetric. Straight leg raise is positive on the right. Reflexes are absent bilaterally at the patella and each ankle. There is no clonus. ASSESSMENT: T10 and L3 compression fractures status post kyphoplasty at these levels. PLAN: Ms. Gonzalez is being transferred to longterm in [place] to start rehab. She will continue the TLSO brace while out of bed. Continue Duragesic and [place] as prescribed to address the pain. Ms Gonzalez will resume her Coumadin as previously prescribed. Ms. Gonzalez will follow up with Dr. Villalta in 7-10 days following discharge from rehab. She will return sooner for problems or concerns. We plan to consider lumbar epidural steroid injections if the right lumbar radicular pain remains problematic. Job ID: [id number] [facility]
--- NOTE | 2018-10-14 10:59 | OP ---
DATE OF PROCEDURE: 10/09/2018 PREPROCEDURE DIAGNOSES: 1. Compression fracture of third lumbar vertebrae. 2. Compression fracture of tenth thoracic vertebrae. POSTPROCEDURE DIAGNOSES: 1. Compression fracture of third lumbar vertebrae. 2. Compression fracture of tenth thoracic vertebrae. PROCEDURES PERFORMED: 1. Kyphoplasty of L3 vertebral body. 2. Kyphoplasty of T10 vertebral body. ANESTHESIA: Sedation with propofol. SUMMARY OF THE PROCEDURE: Risks and benefits of the procedure were discussed with the patient including but not limited to bleeding, infection, nerve damage, worsening of pain or no relief of pain from procedure. Informed consent was obtained. Conservative treatment including bracing, medication, and physical therapy have failed. Fluoroscopic images were obtained to identify appropriate levels noted above and these images were correlated with prior MRI imaging and CAT scan imaging. The skin was prepped with ChloraPrep. Sterile drapes were applied. The left pedicle of L3 was identified. Cephalad and caudad views were obtained, so as the trajectory of the needle and the pedicle would be correct into the vertebral body, approached to the middle line into final position. Local anesthesia was obtained using 50:50 mixture of 0.25% Marcaine and 2% lidocaine for skin and subcutaneous anesthesia. Next, the 11 gauge trocar was advanced to the pedicle. Under an AP view, the trocar was advanced to the cortex, the vertebral body taking care not to violate the medial cortex of the pedicle. After contacting the vertebral body cortex, lateral views were obtained to advance the needle into the vertebral body, such that the tip was located at the junction of the posterior one-third and middle one-third of the vertebral body. The exact same procedure was conducted at the left pedicle of T10. At this point, drills were placed through both trocars and advanced to the anterior one-third of the vertebral body. These were then removed. Lani balloon was placed in 3-inch trocar and advanced to the vertebral body. The balloon was inflated with approximately 3 mL of contrast to PSI of 250. A curve needle was then placed at both trocars and it was noted to cross midline. The cement was then mixed in standard fashion. The cement was then injected into the cavity under continuous fluoroscopy with no extravasation noted in either level. The total cement in each level was approximately 3 mL. The spread was noted throughout the cavity and throughout the vertebral body as seen on the final images. The patient tolerated the procedure well and there were no apparent complications after the procedure. Job ID: [id number]
== END 2018-10-10 13:21 ==
LOC: ERS 19:24 → T4-B 23:32 → ERS 10-06 01:15
PROVIDERS: ADMIT Internal Medicine; ATTEND Internal Medicine
PROC: 0QS03ZZ Reposition Lumbar Vertebra, Percutaneous Approach (ICD-10-PCS; principal; 2018-10-09)
PROC: 0QU03JZ Supplement Lumbar Vertebra with Synthetic Substitute, Percutaneous Approach (ICD-10-PCS; 2018-10-09)
PROC: 0PS43ZZ Reposition Thoracic Vertebra, Percutaneous Approach (ICD-10-PCS; 2018-10-09)
PROC: 0PU43JZ Supplement Thoracic Vertebra with Synthetic Substitute, Percutaneous Approach (ICD-10-PCS; 2018-10-09)
DX: M48.54XA Collapsed vertebra, not elsewhere classified, thoracic region, initial encounter for fracture (principal); M48.56XA Collapsed vertebra, not elsewhere classified, lumbar region, initial encounter for fracture; I48.0 Paroxysmal atrial fibrillation; G89.4 Chronic pain syndrome; E78.5 Hyperlipidemia, unspecified; I12.9 Hypertensive chronic kidney disease with stage 1 through stage 4 chronic kidney disease, or unspecified chronic kidney disease; E11.22 Type 2 diabetes mellitus with diabetic chronic kidney disease; N18.2 Chronic kidney disease, stage 2 (mild); K58.9 Irritable bowel syndrome, unspecified; G47.33 Obstructive sleep apnea (adult) (pediatric); E66.9 Obesity, unspecified; Z68.25 Body mass index [BMI] 25.0-25.9, adult; Z86.73 Personal history of transient ischemic attack (TIA), and cerebral infarction without residual deficits; Z79.01 Long term (current) use of anticoagulants; Z79.82 Long term (current) use of aspirin; Z79.84 Long term (current) use of oral hypoglycemic drugs; Z79.899 Other long term (current) drug therapy; Z95.0 Presence of cardiac pacemaker; Z99.89 Dependence on other enabling machines and devices
CPT/HCPCS: 22513; 22515; 72131; 80053; 82962 ×5; 83735; 84100; 85025; 85610 ×5; 96374; 96375 ×2; 97116 ×3; 97139 ×4; 97530 ×4; 99285; G0378 ×3; 36415; 36416; J0670; J1885; J2001; J2270; J2405; J2704; J3490; Q0162

== ENCOUNTER 2018-11-24 09:29 | Outpatient (CLI) | payer MEDICARE ==
--- NOTE | 2018-11-24 10:22 | CT ---
CT THORACIC SPINE NONCONTRAST: 11/24/2018 HISTORY: Closed wedge compression fracture of fifth thoracic vertebra, initial encounter. Multiple compression fractures of thoracic vertebrae. Recent increase in pain. Evaluate for new fract ure. COMPARISON: 09/12/2018 FINDINGS: The bilateral small pleural effusions demonstrated previously, have resolved. Diffuse severe osteopen ia again noted. No gross hematoma in the prevertebral spaces. No severe central spinal canal stenosis. There is a new T5 compression fracture with minimal bony retropulsion qualifying this as a minimal bu rst fracture, with approximately 20-40% loss of height. There is a new burst fracture of T7 with minimal bony retropulsion, sclerosis, and maximum of approxi mately 75% loss of height centrally. The previously demonstrated burst fracture of T10 with mild retropulsion, now has vertebroplasty ceme nt within it, and in the T9-10 disc space. The loss of height has slightly worsened, now approximately 30%-40%. Old burst fracture of T11 with moderate bony retropulsion is again noted. No significant loss of heig ht posteriorly. Severe loss of height centrally, greater than 95%. Unchanged overall. New compression fracture with broad depression of superior endplate of T12, with mild bony retropulsi on, qualifying this is a burst fracture. Approximately 20% loss of height. Old burst fractures of L1, L2, and L3, treated with vertebroplasty cement. IMPRESSION: 1. New compression/burst fractures since the prior CT: T5, T7, and T12. 2. Interval vertebroplasty of the previously demonstrated T10 burst fracture. Slight further loss of height of T10. 3. Old burst fractures of T11, L1, L2, and L3.
== END 2018-11-24 09:30 | disposition home or self-care (01) ==
LOC: CT 09:29
PROVIDERS: ATTEND Anesthesiology Pain Medicine
DX: S22.051A Stable burst fracture of T5-T6 vertebra, initial encounter for closed fracture (principal); S22.061A Stable burst fracture of T7-T8 vertebra, initial encounter for closed fracture; S22.081A Stable burst fracture of T11-T12 vertebra, initial encounter for closed fracture; Z98.890 Other specified postprocedural states; Z87.81 Personal history of (healed) traumatic fracture
CPT/HCPCS: 72128

== ENCOUNTER 2019-01-26 14:02 | Outpatient (CLI) | payer MEDICARE ==
--- NOTE | 2019-01-26 16:05 | BD ---
BONE DENSITOMETRY: Date: 01/26/19 HISTORY: Postmenopausal osteoporosis screening. FINDINGS: Right Femoral Neck: 0.461 T-Score: -3.5 Total Femur: 0.574 T-Score: -3.0 Left Femoral Neck: 0.443 T-Score: -3.7 Total Femur: 0.604 T-Score: -2.8 IMPRESSION: Bone mineral density of both femoral necks indicate osteoporosis. POS: NAIN
== END 2019-01-26 14:03 | disposition home or self-care (01) ==
LOC: BICMAMMO 14:02
PROVIDERS: ATTEND Internal Medicine Rheumatology
DX: M81.0 Age-related osteoporosis without current pathological fracture (principal)
CPT/HCPCS: 77080

== ENCOUNTER 2021-03-01 14:25 | Inpatient (IN) | payer MEDICARE ==
[~2021-03-01 14:25] MED LIST: Iopamidol-370 76% 500 ML 1 ML ONE
[2021-03-01] MEDS ORDERED: Ondansetron PF 4 MG/2 ML Vial ONE (15:13)
[2021-03-01 15:33] LABS: #Eosinphils 0.1 thou/uL (0.0-0.7); #Lymphocytes 1.5 thou/uL (1.20-3.40); #Monocytes 0.6 thou/uL (0.11-0.59); #Neutrophils 5.5 thou/uL (1.40-6.50); %Basophils 0.3 % (0.0-1.0); %Eosinophils 1.4 % (0.0-10.0); %Lymphocytes 19.3 % (21.0-51.0); %Monocytes 7.8 % (0.0-10.0); %Neutrophils 71.1 % (42.0-75.0); Mean Corpuscular Hemoglobin 36.5 pg (27.0-31.0); Mean Platelet Volume 7.1 fL (7.4-10.4); Platelet Count 148 thou/uL (130-400); RBC Distribution Width 12.4 % (11.5-14.5); Red Blood Cell (RBC) Count 3.28 mill/uL (4.20-5.40); White Blood Cell (WBC) Count 7.7 thou/uL (4.8-10.8)
[2021-03-01 15:53] LABS: ALT (SGPT) 16 U/L (8-55); AST (SGOT) 20 U/L (5-34); Albumin 3.5 g/dL (3.4-4.8); Alkaline Phosphatase 50 U/L (40-110); Anion Gap 9 mmol/L (10-20); BUN (Urea Nitrogen) 18 mg/dL (9.8-20.1); Bilirubin, Total 0.4 mg/dL (0.2-1.2); Calc. Creatinine Clearance 0 mL/min (70-130); Calcium 8.6 mg/dL (7.8-10.44); Carbon Dioxide 26 mmol/L (23-31); Chloride 107 mmol/L (98-107); Globulin 3.3 g/dL (2.4-3.5); Glucose 116 mg/dL (83-110); Potassium 4.3 mmol/L (3.5-5.1); Protein, Total 6.8 g/dL (5.8-8.1); Sodium 138 mmol/L (136-145)
[2021-03-01 15:56] LABS: MDiff Complete? YES; Macrocytosis SLIGHT = 6-15 cells (100X) (0-5/hpf); Platelet Morphology Comment Appears Adequate
[2021-03-01] MEDS ORDERED: Morphine 4 MG/ML VIAL ONE (16:46)
[2021-03-01 18:05] LABS: Bilirubin Negative (Negative); Blood, Urine Negative (Negative); Clarity Clear (Clear); Glucose, Urine (Dipstick) Normal (Negative); Ketone, Urine 20 mg/dL (Negative); Leukocyte Negative Leu/uL (Negative); Nitrite Negative (Negative); Protein, Urine (Dipstick) Negative (Neg-Trace); Urobilinogen Normal mg/dL (Less than 2); pH, Urine 6.5 (5.0-9.0)
[2021-03-01 18:07] LABS: Specific Gravity, Urine 1.053 (1.002-1.036)
[2021-03-01] MEDS ORDERED: Insulin Regular 300 UNITS/3 ML VIAL SC PRN ×2 (22:14)
[2021-03-01] MEDS ORDERED: Ondansetron PF 4 MG/2 ML Vial IVP PRN (22:14)
[2021-03-01] MEDS ORDERED: Dextrose 50% Abboject 50 ML SYRINGE SLOW IVP PRN (22:14)
[2021-03-01] MEDS ORDERED: Dextrose 5% in Water 1,000 ML IV PRN (22:14)
[2021-03-01] MEDS ORDERED: Ibuprofen 200 MG TAB PO PRN (22:51)
[2021-03-01] MEDS ORDERED: Cyclobenzaprine 10 MG TAB PO PRN (22:51)
[2021-03-01 23:04] VITALS: BMI 26.0
[2021-03-01] MEDS ORDERED: Acetaminophen 500 MG TAB PO SCH (23:59)
[2021-03-02] MEDS ORDERED: traMADol HCl 50 MG TAB PO PRN (07:04)
[2021-03-02] MEDS ORDERED: Non-Formulary Item 1 EACH (Carvedilol [Carvedilol] 12.5 MG Tablet) PO SCH (09:00)
[2021-03-02] MEDS: Famotidine 20 MG TAB PO SCH (09:31)
[2021-03-02] MEDS: Acetaminophen 500 MG TAB PO SCH ×3 (09:32→21:50)
[2021-03-02] MEDS: Carvedilol 6.25 MG TAB PO SCH ×2 (09:34→21:50)
[2021-03-02] MEDS: traMADol HCl 50 MG TAB PO PRN (17:17)
[2021-03-02 18:45] LABS: SARS-CoV-2 PCR by NAA Not Detected (NotDetected)
[2021-03-02] MEDS ORDERED: Atorvastatin Calcium 10 MG TAB PO SCH (21:00)
[2021-03-02] MEDS ORDERED: rOPINIRole HCl 1 MG TAB PO SCH (21:00)
[2021-03-02] MEDS ORDERED: Aspirin Chewable 81 MG TAB PO SCH (21:00)
[2021-03-02] MEDS ORDERED: Simvastatin 20 MG TAB PO SCH (21:00)
[2021-03-02] MEDS ORDERED: Insulin Regular 300 UNITS/3 ML VIAL SC PRN ×2 (21:30)
[2021-03-03] MEDS: Acetaminophen 500 MG TAB PO SCH ×3 (02:54→14:08)
[2021-03-03] MEDS: Famotidine 20 MG TAB PO SCH (09:01)
[2021-03-03] MEDS: Carvedilol 6.25 MG TAB PO SCH (09:01)
[2021-03-03 16:02] VITALS: BP 117/56; TEMP 98
[2021-03-03] MEDS: traMADol HCl 50 MG TAB PO PRN (18:39)
== END 2021-03-03 18:45 | disposition critical access hospital (66) | DRG 536 ==
LOC: ERS 14:25 → SURG A 21:49
PROVIDERS: ADMIT Specialist; ATTEND Specialist
DX: S32.591A Other specified fracture of right pubis, initial encounter for closed fracture (principal); I10 Essential (primary) hypertension; I48.91 Unspecified atrial fibrillation; M81.0 Age-related osteoporosis without current pathological fracture; E78.5 Hyperlipidemia, unspecified; W18.30XA Fall on same level, unspecified, initial encounter; Z20.822 Contact with and (suspected) exposure to COVID-19; Z95.0 Presence of cardiac pacemaker; Z79.01 Long term (current) use of anticoagulants; Y92.129 Unspecified place in nursing home as the place of occurrence of the external cause; Z86.73 Personal history of transient ischemic attack (TIA), and cerebral infarction without residual deficits; Z90.49 Acquired absence of other specified parts of digestive tract; Z90.89 Acquired absence of other organs; Z98.890 Other specified postprocedural states
CPT/HCPCS: 36415; 36416; 51701; 70450; 71260; 72125; 72170; 74177; 80053; 81003; 84484; 85025; 93005; 93880; 96374; 96375; G0390; J1815; J2270; J2405; Q9967; U0003; U0005

== ENCOUNTER 2021-05-25 14:52 | Outpatient (CLI) | payer MEDICARE | END 2021-05-25 14:53 | disposition home or self-care (01) | LOC: BICMAMMO 14:52 | PROVIDERS: ATTEND Internal Medicine Rheumatology | DX: M80.08XS Age-related osteoporosis with current pathological fracture, vertebra(e), sequela (principal); Z78.0 Asymptomatic menopausal state | CPT/HCPCS: 77080 ==

== ENCOUNTER 2023-10-31 09:35 | Emergency (ER) | payer MEDICARE, MEDICAID ==
[2023-10-31 11:16] LABS: #Basophils Less than 0.03 10x3/uL (0.0-0.2); %Basophils 0.1 % (0.0-1.0); %Eosinophils 1.4 % (0.0-10.0); %Lymphocytes 18.9 % (21.0-51.0); %Monocytes 15.2 % (0.0-10.0); %Neutrophils 62.4 % (42.0-75.0); Hematocrit 30.5 % (36.0-47.0); Hemoglobin 10.2 g/dL (12.0-16.0); Mean Corpuscular HGB CONC 33.4 g/dL (32.0-36.0); Mean Corpuscular Hemoglobin 35.3 pg (27.0-31.0); Mean Corpuscular Volume 105.5 fL (78.0-98.0); Mean Platelet Volume 9.8 fL (7.4-10.4); Platelet Count 129 10x3/uL (130-400); RBC Distribution Width 14.1 % (11.5-14.5); Red Blood Cell (RBC) Count 2.89 mill/uL (4.20-5.40)
[2023-10-31 11:43] LABS: ALT (SGPT) 9 U/L (8-55); AST (SGOT) 13 U/L (5-34); Albumin 2.3 g/dL (3.4-4.8); Alkaline Phosphatase 78 U/L (40-110); Anion Gap 15 mmol/L (10-20); BUN (Urea Nitrogen) 13 mg/dL (9.8-20.1); Bilirubin, Total 0.7 mg/dL (0.2-1.2); Calc. Creatinine Clearance 0 mL/min (70-130); Calcium 7.8 mg/dL (7.8-10.44); Carbon Dioxide 28 mmol/L (23-31); Chloride 101 mmol/L (98-107); Estimated GFR 61; Globulin 3.8 g/dL (2.4-3.5); Glucose 127 mg/dL (83-110); Lipase 6 U/L (8-78); Potassium 3.3 mmol/L (3.5-5.1); Protein, Total 6.1 g/dL (5.8-8.1); Sodium 141 mmol/L (136-145)
[2023-10-31 12:00] LABS: Bilirubin Negative (Negative); Blood, Urine Negative (Negative); Glucose, Urine (Dipstick) Negative (Negative); Ketone, Urine Negative (Negative); Leukocyte Negative (Negative); Nitrite Negative (Negative); Protein, Urine (Dipstick) Negative (Neg-Trace); Urobilinogen 0.2 mg/dL (Less than 2); pH, Urine 7.5 (5.0-9.0)
[2023-10-31 12:04] LABS: Clarity Clear (Clear)
[2023-10-31 12:06] LABS: Bacteria/HPF Rare-Few HPF (None Seen); CAUTI Indications for Culture Pelvic or flank pain; RBC/HPF None Seen HPF (0-3); Urine Culture Reflex No No; WBC/HPF None Seen HPF (0-3)
== END 2023-10-31 14:00 | disposition home or self-care (01) ==
LOC: ERS 09:35
DX: M54.50 Low back pain, unspecified (principal); R10.30 Lower abdominal pain, unspecified; I10 Essential (primary) hypertension; I48.91 Unspecified atrial fibrillation; E11.9 Type 2 diabetes mellitus without complications; K21.9 Gastro-esophageal reflux disease without esophagitis; Z86.73 Personal history of transient ischemic attack (TIA), and cerebral infarction without residual deficits; Z95.0 Presence of cardiac pacemaker; Z79.82 Long term (current) use of aspirin; Z79.01 Long term (current) use of anticoagulants; Z79.899 Other long term (current) drug therapy
CPT/HCPCS: 36415; 74176; 80053; 81001; 83690; 85025; 93005